=== PATIENT | female | born 1935 | race Caucasian/White ===

== ENCOUNTER 2017-04-18 12:37 | Observation (INO) | payer MEDICARE, BC ==
[2017-04-18] MEDS ORDERED: Sodium Chloride 0.9% 10 ML Syringe FLUSH PRN ×2 (12:44→15:05)
[2017-04-18 13:26] LABS: CHLORIDE,CL 103 mmol/L (101-111); SODIUM,NA 140 mmol/L (135-145)
[2017-04-18] MEDS ORDERED: Acetaminophen 325 MG Tab PO PRN (15:05)
[2017-04-18] MEDS ORDERED: Zolpidem 5 MG Tab PO PRN (15:05)
--- NOTE | 2017-04-18 15:20 | PCM.HP ---
H&P History of Present Illness - General Date of Service: 04/18/17 Admit Problem/Dx: Admission Diagnosis/Problem Admission Diagnosis/Problem TIA, Transient ischemic attack Source of Information: Patient, Family () - History of Present Illness Initial Comments - Free Text/Narative: The patient is an 81-year-old lady who has no history of coronary artery disease , no history of stroke. The patient has been on aspirin for primary prophylaxis. She was noted to have an acute onset of right facial droop along with the slurring of speech. Symptoms started around noon and lasted about an hour. They resolved on their own. No associated seizure, no loss of consciousness, no headache. She feels good and back to normal now She had no similar symptoms in the past. - Related Data Allergies/Adverse Reactions: Allergies Allergy/AdvReac Type Severity Reaction Status Date / Time No Known Allergies Allergy Verified 04/18/17 14:37 Home Medications: Home Meds Alendronate Sodium [Alendronate] 70 mg PO .WEEK 04/18/17 [History] Aspirin [Low Dose Aspirin EC] 81 mg PO DAILY 04/18/17 [History] Calcium Carbonate/Vitamin D3 [Caltrate 600+D] 1 tab PO BEDTIME 04/18/17 [History ] Fish Oil/[place]-3 Fatty Acids [Fish Oil 1,000 MG] 1 gm PO BID 04/18/17 [History] Levothyroxine 75 mcg PO ACBREAKFAST 04/18/17 [History] Multivitamin [Multi-Vitamin Daily] 1 each PO BEDTIME 04/18/17 [History] Simvastatin [Zocor] 20 mg PO BEDTIME 04/18/17 [History] Vit A/C/E AC/Znox/Cupric Oxide [Eye Vitamin-Minerals Tablet] 1 each PO BID 04/18 [History] azaTHIOprine [Azathioprine] 50 mg PO BID 04/18/17 [History] Past Medical History HEENT History: Reports: Impaired 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: - Past Surgical History GI Surgical History: Reports: Appendectomy, Cholecystectomy Musculoskeletal Surgical History: Reports: Hip Replacement, Other (See Below) Other Musculoskeletal Surgeries/Procedures:: patellar surgery Social & Family History - Tobacco Use Smoking Status *Q: Never Smoker - Caffeine Use Caffeine Use: Reports: Coffee - Recreational Drug Use Recreational Drug Use: No H&P Review of Systems - Review of Systems: Review Of Systems: See Below General: Denies: Fever Pulmonary: Denies: Shortness of Breath Cardiovascular: Denies: Chest Pain Gastrointestinal: Denies: Abdominal Pain Psychiatric: Denies: Confusion Neurological: Reports: Change in Speech, Other (Right facial droop). Denies: Seizure, Difficulty Walking, Weakness Exam - Exam Exam: See Below - Vital Signs Vital Signs: Last Vital Signs Temp 36.6 C 04/18/17 14:36 Pulse 71 04/18/17 14:36 Resp 18 04/18/17 14:36 BP 116/84 04/18/17 14:36 Pulse Ox 96 04/18/17 14:36 Weight: 67.041 kg - Exam General: Alert, Oriented Neck: Supple Lungs: Clear to Auscultation, Normal Respiratory Effort Cardiovascular: Regular Rate, Regular Rhythm Extremities: No Pedal Edema Neuro Extensive - Mental Status: Alert, Oriented x3, Normal Cognition, Memory Intact Neuro Extensive - Motor, Sensory, Reflexes: CN II-XII Intact. 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 *Q Meaningful Use (ADM) - VTE *Q VTE Criteria *Q: - Stroke *Q Stroke Criteria *Q: - AMI *Q AMI Criteria *Q: - Problem List (1) Dyslipidemia SNOMED Code(s): 976025281 ICD Code: E78.5 - HYPERLIPIDEMIA, UNSPECIFIED Status: Acute Current Visit : Yes (2) TIA (transient ischemic attack) SNOMED Code(s): 799918514 ICD Code: G45.9 - TRANSIENT CEREBRAL ISCHEMIC ATTACK, UNSPECIFIED Status: Acute Current Visit: Yes Problem List Initiated/Reviewed/Updated: Yes Orders Last 24hrs: Active Orders 24 hr Category Date Time Status Patient Status [ADT] Routine ADT 04/18/17 15:05 Ordered Antiembolic Devices [RC] PER UNIT ROUTINE Care 04/18/17 15:09 Ordered Neuro Check [RC] Q2HWA Care 04/18/17 15:00 Ordered Oxygen Therapy [RC] PRN Care 04/18/17 15:05 Ordered Up With Assistance [RC] ASDIRECTED Care 04/18/17 15:05 Ordered VTE/DVT Education [RC] PER UNIT ROUTINE Care 04/18/17 15:05 Ordered Vital Signs [RC] Q4H Care 04/18/17 15:05 Ordered Regular Diet [DIET] Diet 04/18/17 Dinner Ordered Acetaminophen [Tylenol] Med 04/18/17 15:05 Ordered 650 mg PO Q4H PRN Clopidogrel [Plavix] Med 04/18/17 15:00 Ordered 75 mg PO DAILY Heparin Sodium Med 04/18/17 22:00 Ordered 5,000 units SUBCUT Q8HR Levothyroxine Med 04/19/17 06:00 Ordered 75 mcg PO ACBREAKFAST Multivitamin [Multi-Vitamin Daily] Med 04/18/17 21:00 Ordered 1 each PO BEDTIME Simvastatin [Zocor] Med 04/18/17 21:00 Ordered 20 mg PO BEDTIME Sodium Chloride 0.9% [Saline Flush] Med 04/18/17 15:05 Ordered 10 ml FLUSH ASDIRECTED PRN Vit A/C/E AC/Znox/Cupric Oxide [Eye Vitamin-Minerals Med 04/18/17 21:00 Ordered Tablet] 1 each PO BID Zolpidem [Ambien] Med 04/18/17 15:05 Ordered 5 mg PO BEDTIME PRN azaTHIOprine [Imuran] Med 04/18/17 21:00 Ordered 50 mg PO BID Antiembolic Hose [OM.PC] Per Unit Routine Oth 04/18/17 15:06 Ordered Saline Lock Insert [OM.PC] Routine Oth 04/18/17 15:05 Ordered Resuscitation Status Routine Resus Stat 04/18/17 15:05 Ordered Medication Orders Acetaminophen (Tylenol) 650 mg PO Q4H PRN PRN Reason: Pain (Mild 1-3)/fever Azathioprine (Imuran) 50 mg PO BID [facility] Clopidogrel Bisulfate (Plavix) 75 mg PO DAILY [facility] Heparin Sodium (Porcine) (Heparin Sodium) 5,000 units SUBCUT Q8HR [facility] Levothyroxine Sodium (Levothyroxine) 75 mcg PO ACBREAKFAST [facility] Non-Formulary Medication (Multivitamin [Multi-Vitamin Daily]) 1 each PO BEDTIME [facility] Non-Formulary Medication (Simvastatin [Zocor]) 20 mg PO BEDTIME [facility] Non-Formulary Medication (Vit A/C/E Ac/Znox/Cupric Oxide [Eye Vitamin-Minerals Tablet]) 1 each PO BID [facility] Sodium Chloride (Saline Flush) 10 ml FLUSH ASDIRECTED PRN PRN Reason: Keep Vein Open Last Admin: 04/18/17 13:05 Dose: 10 ml Sodium Chloride (Saline Flush) 10 ml FLUSH ASDIRECTED PRN PRN Reason: Keep Vein Open Zolpidem Tartrate (Ambien) 5 mg PO BEDTIME PRN PRN Reason: Sleep Assessment/Plan Comment:: 81-year-old presented with transient right facial droop, slurred speech. 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 Discussed the case with neurology Dr. Maldonado from [place] No indication to use steroids. We'll need follow-up with neurosurgery No apparent seizure TIA With transient slurred speech, right facial droop Completely resolved We will do neuro checks during hospital observation Will switch aspirin to Plavix. The patient will need further risk stratification with cholesterol check. For now continue statin. The need further imaging study early next week. Carotid ultrasound, MRI head. Refer to primary care physician on discharge History of myositis Continue imuran DVT prophylaxis with subcutaneous heparin
[2017-04-18] MEDS: Clopidogrel 75 MG Tab PO SCH (16:27)
--- NOTE | 2017-04-18 18:08 | EDM.PDOC ---
"Scribed by Romi Asher 04/18/17 1257 Mynor Mosher MD ED HPI GENERAL MEDICAL PROBLEM - General Chief Complaint: Neurological Problem Stated Complaint: BY AMBULANCE Time Seen by Provider: 04/18/17 12:44 Source of Information: Reports: Patient, EMS, EMS Notes Reviewed, RN, RN Notes Reviewed History Limitations: Reports: No Limitations - History of Present Illness INITIAL COMMENTS - FREE TEXT/NARRATIVE: Arrives from home by ambulance with report of sudden onset of slurred and garbled speech and left facial droop approximately 45 minutes prior to arrival. Symptoms had completely resolved by the time the patient arrived to the emergency department. Patient had been on the telephone with a friend with an approximately one hour conversation. Patient's was present during the entire hour on the telephone and states that she had clear and normal speech. When the patient ended asked her what the other libertarian had said during the conversation and her response was with garbled and slurred speech. turned to face her and asked what was wrong with her speech and noted that she had significant left facial droop. The patient states she was not aware that her speech was abnormal. Both the patient and state that during the that the patient was symptomatic with speech and facial droop she displayed normal ambulation and use of both arms. Patient denies any headache preceding, during or after the neurologic symptoms. Denies any swallowing difficulties, visual changes, dizziness, lightheadedness, chest pain, breathing difficulty, numbness,tingling, motor weakness, loss of bowel or bladder control. Onset: Today Duration: Resolved Prior to Arrival Location: Reports: Head Severity: Mild - Related Data Allergies Allergy/AdvReac Type Severity Reaction Status Date / Time No Known Allergies Allergy Verified 04/18/17 14:37 Home Meds: Home Meds Alendronate Sodium [Alendronate] 70 mg PO .WEEK 04/18/17 [History] Aspirin [Low Dose Aspirin EC] 81 mg PO DAILY 04/18/17 [History] Calcium Carbonate/Vitamin D3 [Caltrate 600+D] 1 tab PO BEDTIME 04/18/17 [History ] Fish Oil/[place]-3 Fatty Acids [Fish Oil 1,000 MG] 1 gm PO BID 04/18/17 [History] Levothyroxine 75 mcg PO ACBREAKFAST 04/18/17 [History] Multivitamin [Multi-Vitamin Daily] 1 each PO BEDTIME 04/18/17 [History] Simvastatin [Zocor] 20 mg PO BEDTIME 04/18/17 [History] Vit A/C/E AC/Znox/Cupric Oxide [Eye Vitamin-Minerals Tablet] 1 each PO BID 04/18 [History] azaTHIOprine [Azathioprine] 50 mg PO BID 04/18/17 [History] Social & Family History - Family History Neurological: Reports: Other (See Below) (brother had a stroke.) ED ROS GENERAL - Review of Systems Review Of Systems: ROS reveals no pertinent complaints other than HPI. ED EXAM, NEURO - Physical Exam Exam: See Below Exam Limited By: No Limitations General Appearance: Alert, WD/WN, No Apparent Distress Eye Exam: Bilateral Eye: EOMI, Normal Inspection, PERRL Ears: Normal External Exam, Normal Canal, Hearing Grossly Normal, Normal TMs Nose: Normal Inspection, Normal Mucosa, No Blood Throat/Mouth: Normal Inspection, Normal Lips, Normal Teeth, Normal Gums, Normal Oropharynx, Normal Voice, No Airway Compromise Head Exam: Atraumatic, Normocephalic Neck: Normal Inspection, Supple, Non-Tender, Full Range of Motion. No: Carotid Bruit Respiratory/Chest: No Respiratory Distress, Lungs Clear, Normal Breath Sounds, No Accessory Muscle Use, Chest Non-Tender Cardiovascular: Normal Peripheral Pulses, Regular Rate, Rhythm, No Edema, No Gallop, No JVD, No Murmur, No Rub GI/Abdominal: Normal Bowel Sounds, Soft, Non-Tender, No Distention, No Abnormal Bruit (Female) Exam: Deferred Rectal (Female) Exam: Deferred Neurological: Alert, Normal Mood/Affect, Normal Dorsiflexion, CN II-XII Intact, Normal Plantar Flexion, Normal Reflexes, No Motor/Sensory Deficits, Oriented x 3 , Other (See airfield engineer officer for NIH stroke scale. ) Back Exam: Normal Inspection, Full Range of Motion, NT Extremities: Normal Inspection, Normal Range of Motion, Non-Tender, No Pedal Edema, Normal Capillary Refill Psychiatric: Normal Affect, Normal Mood Skin Exam: Warm, Dry, Intact, Normal Color, No Rash EKG INTERPRETATION EKG Date: 04/18/17 Time: 12:46 Rhythm: Other (sinus rhythm) Rate (Beats/Min): 73 [place]: Normal P-Wave: Present QRS: Other (Probable left atrial abnormality. Probable left ventricular hypertrophy.) ST-T: Normal QT: Normal Course - Vital Signs Last Recorded V/S: Last Vital Signs Temp 36.6 C 04/18/17 14:36 Pulse 71 04/18/17 14:36 Resp 18 04/18/17 14:36 BP 116/84 04/18/17 14:36 Pulse Ox 96 04/18/17 14:36 - Orders/Labs/Meds Orders: Active Orders 24 hr Category Date Time Status Sodium Chloride 0.9% [Saline Flush] Med 04/18/17 12:44 Active 10 ml FLUSH ASDIRECTED PRN Peripheral IV Insertion Adult [OM.PC] Stat Oth 04/18/17 12:45 Ordered Medication Orders Acetaminophen (Tylenol) 650 mg PO Q4H PRN PRN Reason: Pain (Mild 1-3)/fever Azathioprine (Imuran) 50 mg PO BID [facility] Clopidogrel Bisulfate (Plavix) 75 mg PO DAILY [facility] Last Admin: 04/18/17 16:27 Dose: 75 mg Heparin Sodium (Porcine) (Heparin Sodium) 5,000 units SUBCUT Q8HR [facility] Levothyroxine Sodium (Levothyroxine) 75 mcg PO ACBREAKFAST [facility] Multivitamins ([place]) 1 each PO BEDTIME [facility] Multivitamins/Minerals (I-[place]) 1 each PO BID [facility] Simvastatin (Zocor) 20 mg PO BEDTIME [facility] Sodium Chloride (Saline Flush) 10 ml FLUSH ASDIRECTED PRN PRN Reason: Keep Vein Open Last Admin: 04/18/17 13:05 Dose: 10 ml Sodium Chloride (Saline Flush) 10 ml FLUSH ASDIRECTED PRN PRN Reason: Keep Vein Open Zolpidem Tartrate (Ambien) 5 mg PO BEDTIME PRN PRN Reason: Sleep Labs: Laboratory Tests 04/18/17 04/18/17 04/18/17 Range/Units 12:56 12:58 12:58 WBC 5.5 (5.0-10.0) 10^3/uL RBC 4.08 L (4.2-5.4) 10^6/uL Hgb 13.2 (12.0-16.0) g/dL Hct 40.5 (37.0-47.0) % MCV 99.3 (80-100) fL MCH 32.4 (27.0-34.0) pg MCHC 32.6 L (33.0-35.0) g/dL Plt Count 201 (150-450) 10^3/uL Neut % (Auto) 44.3 (42.2-75.2) % Lymph % (Auto) 33.7 (20.5-50.1) % [place] % (Auto) 18.3 H (2-8) % Eos % (Auto) 3.3 H (1.0-3.0) % Baso % (Auto) 0.4 (0.0-1.0) % PT 10.2 (9.0-12.0) SEC INR 1.0 (0.9-1.2) APTT 26.0 (22.0-34.0) SEC Sodium (135-145) mmol/L Potassium (3.6-5.0) mmol/L Chloride (101-111) mmol/L Carbon Dioxide (21.0-31.0) mmol/L Anion Gap BUN (7-18) mg/dL Creatinine (0.6-1.3) mg/dL Est Cr Clr Drug Dosing mL/min Estimated GFR (MDRD) BUN/Creatinine Ratio Glucose (74-105) mg/dL POC Glucose 102 (83-110) mg/dl Calcium (8.4-10.2) mg/dl Total Bilirubin (0.2-1.0) mg/dL AST (10-42) IU/L ALT (10-60) IU/L Alkaline Phosphatase (42-121) IU/L Troponin I (0.00-0.02) ng/ml Total Protein (6.7-8.2) g/dl Albumin (3.2-5.5) g/dl Globulin Albumin/Globulin Ratio Urine Color (YELLOW) Urine Appearance (CLEAR) Urine pH (5.0-9.0) Ur Specific [place] (1.005-1.030) Urine Protein (NEGATIVE) Urine Glucose (UA) (NEGATIVE) Urine Ketones (NEGATIVE) Urine Occult Blood (NEGATIVE) Urine Nitrite (NEGATIVE) Urine Bilirubin (NEGATIVE) Urine Urobilinogen (0.2-1.0) mg/dL Ur Leukocyte Esterase (NEGATIVE) Urine RBC /HPF Urine WBC (0-5/HPF) /HPF Ur Epithelial Cells /HPF Urine Bacteria (0-FEW/HPF) /HPF Urine Opiates Screen (NEGATIVE) Ur Oxycodone Screen (NEGATIVE) Urine Methadone Screen (NEGATIVE) Ur Barbiturates Screen (NEGATIVE) U Tricyclic Antidepress (NEGATIVE) Ur Phencyclidine Scrn (NEGATIVE) Ur Amphetamine Screen (NEGATIVE) U Methamphetamines Scrn (NEGATIVE) Urine MDMA Screen (NEGATIVE) U Benzodiazepines Scrn (NEGATIVE) Urine Cocaine Screen (NEGATIVE) U Marijuana (THC) Screen (NEGATIVE) Ethyl Alcohol mg/dL 04/18/17 04/18/17 04/18/17 Range/Units 12:58 13:15 13:15 WBC (5.0-10.0) 10^3/uL RBC (4.2-5.4) 10^6/uL Hgb (12.0-16.0) g/dL Hct (37.0-47.0) % MCV (80-100) fL MCH (27.0-34.0) pg MCHC (33.0-35.0) g/dL Plt Count (150-450) 10^3/uL Neut % (Auto) (42.2-75.2) % Lymph % (Auto) (20.5-50.1) % [place] % (Auto) (2-8) % Eos % (Auto) (1.0-3.0) % Baso % (Auto) (0.0-1.0) % PT (9.0-12.0) SEC INR (0.9-1.2) APTT (22.0-34.0) SEC Sodium 140 (135-145) mmol/L Potassium 4.2 (3.6-5.0) mmol/L Chloride 103 (101-111) mmol/L Carbon Dioxide 28.0 (21.0-31.0) mmol/L Anion Gap 13.2 BUN 18 (7-18) mg/dL Creatinine 0.8 (0.6-1.3) mg/dL Est Cr Clr Drug Dosing 40.29 mL/min Estimated GFR (MDRD) > 60 BUN/Creatinine Ratio 22.50 Glucose 99 (74-105) mg/dL POC Glucose (83-110) mg/dl Calcium 9.9 (8.4-10.2) mg/dl Total Bilirubin 0.6 (0.2-1.0) mg/dL AST 24 (10-42) IU/L ALT 15 (10-60) IU/L Alkaline Phosphatase 41 L (42-121) IU/L Troponin I < 0.02 (0.00-0.02) ng/ml Total Protein 7.7 (6.7-8.2) g/dl Albumin 4.1 (3.2-5.5) g/dl Globulin 3.6 Albumin/Globulin Ratio 1.14 Urine Color Yellow (YELLOW) Urine Appearance Clear (CLEAR) Urine pH 5.5 (5.0-9.0) Ur Specific [place] 1.015 (1.005-1.030) Urine Protein Negative (NEGATIVE) Urine Glucose (UA) Negative (NEGATIVE) Urine Ketones Negative (NEGATIVE) Urine Occult Blood Trace-lysed H (NEGATIVE) Urine Nitrite Negative (NEGATIVE) Urine Bilirubin Negative (NEGATIVE) Urine Urobilinogen 0.2 (0.2-1.0) mg/dL Ur Leukocyte Esterase Negative (NEGATIVE) Urine RBC 5-10 H /HPF Urine WBC 0-5 (0-5/HPF) /HPF Ur Epithelial Cells Rare /HPF Urine Bacteria Rare (0-FEW/HPF) /HPF Urine Opiates Screen Negative (NEGATIVE) Ur Oxycodone Screen Negative (NEGATIVE) Urine Methadone Screen Negative (NEGATIVE) Ur Barbiturates Screen Negative (NEGATIVE) U Tricyclic Antidepress Negative (NEGATIVE) Ur Phencyclidine Scrn Negative (NEGATIVE) Ur Amphetamine Screen Negative (NEGATIVE) U Methamphetamines Scrn Negative (NEGATIVE) Urine MDMA Screen Negative (NEGATIVE) U Benzodiazepines Scrn Negative (NEGATIVE) Urine Cocaine Screen Negative (NEGATIVE) U Marijuana (THC) Screen Negative (NEGATIVE) Ethyl Alcohol < 5 mg/dL Meds: Medications Generic Name Dose Route Start Last Admin Trade Name Freq PRN Reason Stop Dose Admin Acetaminophen 650 mg 04/18/17 15:05 Tylenol PO Q4H PRN Pain (Mild 1-3)/fever Azathioprine 50 mg 04/18/17 21:00 Imuran PO BID [facility] Clopidogrel Bisulfate 75 mg 04/18/17 15:00 04/18/17 16:27 Plavix PO 75 mg DAILY [facility] Administration Heparin Sodium (Porcine) 5,000 units 04/18/17 22:00 Heparin Sodium SUBCUT Q8HR [facility] Levothyroxine Sodium 75 mcg 04/19/17 06:00 Levothyroxine PO ACBREAKFAST [facility] Multivitamins 1 each 04/18/17 21:00 Thera PO BEDTIME [facility] Multivitamins/Minerals 1 each 04/18/17 21:00 I-Preston PO BID [facility] Simvastatin 20 mg 04/18/17 21:00 Zocor PO BEDTIME [facility] Sodium Chloride 10 ml 04/18/17 12:44 04/18/17 13:05 Saline Flush FLUSH 10 ml ASDIRECTED PRN Administration Keep Vein Open Sodium Chloride 10 ml 04/18/17 15:05 Saline Flush FLUSH ASDIRECTED PRN Keep Vein Open Zolpidem Tartrate 5 mg 04/18/17 15:05 Ambien PO BEDTIME PRN Sleep - Radiology Interpretation Free Text/Narrative:: EXAM: CT Head Without Intravenous Contrast EXAM DATE/TIME: 04/18/2017 12:41 PM CLINICAL HISTORY: 81 years old, female; Signs and symptoms; Weakness, facial TECHNIQUE: Axial computed tomography images of the head/brain without intravenous contrast. All CT scans at this facility use one or more dose reduction techniques, viz.: automated exposure control; ma/kV adjustment per patient size (including targeted exams where dose is matched to indication; i.e. head); or iterative reconstruction technique. COMPARISON: No relevant prior studies available. FINDINGS: Brain: There is a low-density hygroma over the left frontal convexity. The hygroma measures 5.0 cm in greatest transverse dimension by up to 8 mm in depth. There is a minimal amount of mass effect on the underlying brain. 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 No acute intracranial changes. There are mild atrophic changes. No hemorrhage. No shift across the midline. Ventricles: Unremarkable. No ventriculomegaly. Bones/joints: Unremarkable. No acute fracture. Soft tissues: Unremarkable. Sinuses: Unremarkable as visualized. No acute sinusitis. Mastoid air cells: Unremarkable as visualized. No mastoid effusion. IMPRESSION: 1. Small hygroma over the left frontal convexity with a mild amount of mass effect. LAKIA BALTAZAR | Final Radiology Report CONFIDENTIALITY STATEMENT This report is intended only for use by the referring physician, and only in accordance with law. If you received this in error, call [phone]. Page 2 of 2 2. No other acute intracranial changes. Thank you for allowing us to participate in the care of your patient. Dictated and Authenticated by: Carlos Bhatt MD 04/18/2017 12:55 PM Central Time ([place] & [place]) Departure - Departure Time of Disposition: 13:49 ((Admit to Dr. Costa)) Disposition: Refer to Observation Condition: Fair Clinical Impression: TIA (transient ischemic attack) Qualifiers: Transient cerebral ischemia type: other Qualified Code(s): G45.8 - Other transient cerebral ischemic attacks and related syndromes - Discharge Information - My Orders Last 24 Hours: My Active Orders 04/18/17 12:44 Sodium Chloride 0.9% [Saline Flush] 10 ml FLUSH ASDIRECTED PRN 04/18/17 12:45 Peripheral IV Insertion Adult [OM.PC] Stat - Assessment/Plan Last 24 Hours: My Active Orders 04/18/17 12:44 Sodium Chloride 0.9% [Saline Flush] 10 ml FLUSH ASDIRECTED PRN 04/18/17 12:45 Peripheral IV Insertion Adult [OM.PC] Stat I have read and agree with the documentation that has been completed regarding this visit. By signing this record, I attest that the documentation was completed in my physical presence and is an accurate record of the encounter."
[2017-04-18] MEDS: Lutein/Minerals/Vit A,C & E Tab PO SCH (20:18)
[2017-04-18] MEDS: AZATHIOPRINE 50 MG PO SCH (20:19)
[2017-04-18] MEDS ORDERED: Multivitamins,Therapeutic Tab PO SCH (21:00)
[2017-04-18] MEDS ORDERED: Simvastatin 10 MG Tab PO SCH (21:00)
[2017-04-18] MEDS: Heparin Sodium 5,000 Units/ML Vial SUBCUT SCH (22:06)
[2017-04-19] MEDS ORDERED: Levothyroxine 75 MCG Tab PO SCH (06:00)
[2017-04-19] MEDS: Heparin Sodium 5,000 Units/ML Vial SUBCUT SCH (06:06)
[2017-04-19] MEDS: AZATHIOPRINE 50 MG PO SCH (09:15)
[2017-04-19] MEDS: Lutein/Minerals/Vit A,C & E Tab PO SCH (09:15)
[2017-04-19] MEDS: Clopidogrel 75 MG Tab PO SCH (09:17)
--- NOTE | 2017-04-19 11:52 | PCM.DCSUM1 ---
Discharge Summary - Hospital Course Free Text/Narrative:: 81-year-old presented with transient right facial droop, slurred speech. 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 Discussed the case with neurology Dr. Maldonado from [place] No indication to use steroids. We'll need follow-up with neurosurgery No apparent seizure TIA With transient slurred speech, right facial droop Completely resolved Will switch aspirin to Plavix. continue statin. no afib on tele Will need further imaging study early next week. Carotid ultrasound, MRI head. Pt will set up appt with Dr. Villa early next week. History of myositis Continue imuran - Discharge Data Discharge Date: 04/19/17 Discharge Disposition: Home, Self-Care 01 Condition: Good - Discharge Diagnosis/Problem(s) (1) Dyslipidemia SNOMED Code(s): 183003441 ICD Code: E78.5 - HYPERLIPIDEMIA, UNSPECIFIED Status: Acute Current Visit : Yes (2) TIA (transient ischemic attack) SNOMED Code(s): 933754214 ICD Code: G45.9 - TRANSIENT CEREBRAL ISCHEMIC ATTACK, UNSPECIFIED Status: Acute Current Visit: Yes Qualifiers: Transient cerebral ischemia type: other Qualified Code(s): G45.8 - Other transient cerebral ischemic attacks and related syndromes - Patient Instructions Diet: Heart Healthy Diet Activity: As Tolerated - Discharge Plan Prescriptions/Med Rec: Clopidogrel [Plavix] 75 mg PO DAILY #30 tablet Home Medications: Home Meds Alendronate Sodium [Alendronate] 70 mg PO .WEEK 04/18/17 [History] Calcium Carbonate/Vitamin D3 [Caltrate 600+D 1500 MG-400 Units] 1 tab PO BEDTIME 04/18/17 [History] Fish Oil/[place]-3 Fatty Acids [Fish Oil 1,000 MG] 1 gm PO BID 04/18/17 [History] Levothyroxine 75 mcg PO ACBREAKFAST 04/18/17 [History] Multivitamin [Multi-Vitamin Daily] 1 each PO BEDTIME 04/18/17 [History] Simvastatin [Zocor] 20 mg PO BEDTIME 04/18/17 [History] Vit A/C/E AC/Znox/Cupric Oxide [Eye Vitamin-Minerals Tablet] 1 each PO BID 04/18 [History] azaTHIOprine [Azathioprine] 50 mg PO BID 04/18/17 [History] Clopidogrel [Plavix] 75 mg PO DAILY #30 tablet 04/19/17 [Rx] Patient Handouts: Transient Ischemic Attack, [id number], Clopidogrel tablets , Dyslipidemia Referrals: PCP,Unobtain [Ordering Only Provider] - - General Info Date of Service: 04/19/17 Functional Status: Reports: Tolerating Diet - Review of Systems General: Denies: Fever, Weakness Pulmonary: Denies: Shortness of Breath Cardiovascular: Denies: Chest Pain Neurological: Reports: No Symptoms. Denies: Confusion, Difficulty Walking, Weakness, Change in Speech - Patient Data Vitals - Most Recent: Last Vital Signs Temp 37.1 C 04/19/17 07:00 Pulse 77 04/19/17 07:00 Resp 20 04/19/17 07:00 BP 122/68 04/19/17 07:00 Pulse Ox 94 L 04/19/17 07:00 Weight - Most Recent: 67.041 kg I&O - Last 24 hours: Intake & Output 04/18/17 04/19/17 04/19/17 21:59 06:59 14:59 Intake Total Balance Med Orders - Current: Current Medications Acetaminophen (Tylenol) 650 mg PO Q4H PRN PRN Reason: Pain (Mild 1-3)/fever Azathioprine (Imuran) 50 mg PO BID [facility] Last Admin: 04/19/17 09:15 Dose: 50 mg Clopidogrel Bisulfate (Plavix) 75 mg PO DAILY [facility] Last Admin: 04/19/17 09:17 Dose: 75 mg Heparin Sodium (Porcine) (Heparin Sodium) 5,000 units SUBCUT Q8HR [facility] Last Admin: 04/19/17 06:06 Dose: 5,000 units Levothyroxine Sodium (Levothyroxine) 75 mcg PO ACBREAKFAST [facility] Last Admin: 04/19/17 06:06 Dose: 75 mcg Multivitamins (Thera) 1 each PO BEDTIME [facility] Last Admin: 04/18/17 20:18 Dose: 1 each Multivitamins/Minerals (I-Preston) 1 each PO BID [facility] Last Admin: 04/19/17 09:15 Dose: 1 each Simvastatin (Zocor) 20 mg PO BEDTIME [facility] Last Admin: 04/18/17 20:18 Dose: 20 mg Sodium Chloride (Saline Flush) 10 ml FLUSH ASDIRECTED PRN PRN Reason: Keep Vein Open Last Admin: 04/18/17 13:05 Dose: 10 ml Sodium Chloride (Saline Flush) 10 ml FLUSH ASDIRECTED PRN PRN Reason: Keep Vein Open Zolpidem Tartrate (Ambien) 5 mg PO BEDTIME PRN PRN Reason: Sleep - Exam General: Reports: Alert, Oriented Neck: Reports: Supple Lungs: Reports: Clear to Auscultation, Normal Respiratory Effort Cardiovascular: Reports: Regular Rate, Regular Rhythm Extremities: No Pedal Edema Skin: Reports: Warm, Dry Neurological: Reports: No New Focal Deficit, Normal Speech, Cranial Nerves Intact *Q Meaningful Use (DIS) - VTE *Q VTE Criteria *Q: - Stroke *Q Stroke Criteria *Q: - AMI *Q AMI Criteria *Q:
--- NOTE | 2017-04-22 09:39 | EKG ---
04/18/2017- LAKIA BALTAZAR - EKG, per my reading, shows sinus rhythm at a rate of 73. [facility] /[id number]
== END 2017-04-19 13:25 | disposition home or self-care (01) ==
LOC: DL.ED 12:37 → DL.MS 14:15 → UNDOADMOB 14:15 → DL.MS 15:05
PROVIDERS: ADMIT Internal Medicine; ATTEND Internal Medicine
DX: E78.5 Hyperlipidemia, unspecified (principal); G45.8 Other transient cerebral ischemic attacks and related syndromes; Z79.899 Other long term (current) drug therapy; Z79.82 Long term (current) use of aspirin; Z90.49 Acquired absence of other specified parts of digestive tract
CPT/HCPCS: 36415; 70450; 71045; 80053; 80305; 81001; 82962; 84484; 85025; 85610; 85730; 93005; 93010; 96372; 99285; A9270; G0378; G0480; J1644; J7050; J7500

== ENCOUNTER 2017-04-27 06:01 | Emergency (ER) | payer MEDICARE, BC ==
--- NOTE | 2017-04-27 06:20 | EDM.PDOC ---
ED HPI GENERAL MEDICAL PROBLEM - General Chief Complaint: Neuro Symptoms/Deficits Stated Complaint: IN BY AMBULANCE Time Seen by Provider: 04/27/17 06:16 Source of Information: Reports: Patient, EMS, Family History Limitations: Reports: No Limitations - History of Present Illness INITIAL COMMENTS - FREE TEXT/NARRATIVE: spouse states last seen pt normal was 3am, then got up to b'room 5am noticed pt unsteady. called EMS. pt states was just here for same thing and wondered how often all this will be repeated. speech clear upon arrival but upon returning from CAT of head speech started to slur - Related Data Allergies Allergy/AdvReac Type Severity Reaction Status Date / Time No Known Allergies Allergy Verified 04/18/17 14:37 Home Meds: Home Meds Alendronate Sodium [Alendronate] 70 mg PO .WEEK 04/18/17 [History] Calcium Carbonate/Vitamin D3 [Caltrate 600+D 1500 MG-400 Units] 1 tab PO BEDTIME 04/18/17 [History] Fish Oil/[place]-3 Fatty Acids [Fish Oil 1,000 MG] 1 gm PO BID 04/18/17 [History] Levothyroxine 75 mcg PO ACBREAKFAST 04/18/17 [History] Multivitamin [Multi-Vitamin Daily] 1 each PO BEDTIME 04/18/17 [History] Simvastatin [Zocor] 20 mg PO BEDTIME 04/18/17 [History] Vit A/C/E AC/Znox/Cupric Oxide [Eye Vitamin-Minerals Tablet] 1 each PO BID 04/18 [History] azaTHIOprine [Azathioprine] 50 mg PO BID 04/18/17 [History] Clopidogrel [Plavix] 75 mg PO DAILY #30 tablet 04/19/17 [Rx] Past Medical History HEENT History: Reports: Impaired Vision Cardiovascular History: Reports: Hypertension Respiratory History: Reports: Pulmonary Fibrosis 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: Neurological History: Reports: Other (See Below) Other Neuro History: current admission TIA Endocrine/Metabolic History: Reports: Hypothyroidism Dermatologic History: Reports: Other (See Below) Other Dermatologic History: had finger abcess/infection - Past Surgical History GI Surgical History: Reports: Appendectomy, Cholecystectomy Musculoskeletal Surgical History: Reports: Hip Replacement, Other (See Below) Other Musculoskeletal Surgeries/Procedures:: patellar surgery Social & Family History - Family History Family Medical History: Noncontributory Neurological: Reports: Other (See Below) (brother had a stroke.) - Tobacco Use Smoking Status *Q: Never Smoker Second Hand Smoke Exposure: No - Caffeine Use Caffeine Use: Reports: Coffee - Recreational Drug Use Recreational Drug Use: No ED ROS GENERAL - Review of Systems Review Of Systems: ROS reveals no pertinent complaints other than HPI. ED EXAM, NEURO - Physical Exam Exam: See Below Exam Limited By: No Limitations General Appearance: Alert, WD/WN, No Apparent Distress, Anxious Eye Exam: Bilateral Eye: PERRL (pupils ER @ 4mm) Ears: Hearing Grossly Normal Throat/Mouth: Normal Voice, No Airway Compromise Head Exam: Atraumatic Neck: Non-Tender, Full Range of Motion Respiratory/Chest: No Respiratory Distress, Lungs Clear, Normal Breath Sounds Cardiovascular: Regular Rate, Rhythm GI/Abdominal: Soft, Non-Tender Neurological: Alert, Normal Mood/Affect, Other (left dorsiflexion weaker) Psychiatric: Normal Affect, Normal Mood Skin Exam: Warm, Dry, Normal Color Course - Vital Signs Last Recorded V/S: Last Vital Signs Temp 36.3 C 04/27/17 06:05 Pulse 79 04/27/17 06:05 Resp 17 04/27/17 06:05 BP 128/67 04/27/17 06:05 Pulse Ox 98 04/27/17 06:05 - Orders/Labs/Meds Orders: Active Orders 24 hr Category Date Time Status EKG 12 Lead [EKG Documentation Completion] [RC] STAT Care 04/27/17 06:15 Active INR,PT,PROTHROMBIN TIME [COAG] Stat Lab 04/27/17 06:20 Received PTT,PARTIAL THROMBOPLSTIN TIME [COAG] Stat Lab 04/27/17 06:20 Received Labs: Laboratory Tests 04/27/17 04/27/17 04/27/17 Range/Units 06:20 06:20 06:20 WBC 5.7 (5.0-10.0) 10^3/uL RBC 4.19 L (4.2-5.4) 10^6/uL Hgb 13.5 (12.0-16.0) g/dL Hct 41.5 (37.0-47.0) % MCV 99.0 (80-100) fL MCH 32.2 (27.0-34.0) pg MCHC 32.5 L (33.0-35.0) g/dL Plt Count 205 (150-450) 10^3/uL Neut % (Auto) 56.6 (42.2-75.2) % Lymph % (Auto) 28.3 (20.5-50.1) % [place] % (Auto) 12.2 H (2-8) % Eos % (Auto) 2.6 (1.0-3.0) % Baso % (Auto) 0.3 (0.0-1.0) % Sodium 139 (135-145) mmol/L Potassium 3.8 (3.6-5.0) mmol/L Chloride 101 (101-111) mmol/L Carbon Dioxide 28.0 (21.0-31.0) mmol/L Anion Gap 13.8 BUN 13 (7-18) mg/dL Creatinine 0.7 (0.6-1.3) mg/dL Est Cr Clr Drug Dosing 46.04 mL/min Estimated GFR (MDRD) > 60 BUN/Creatinine Ratio 18.57 Glucose 120 H (74-105) mg/dL Calcium 9.6 (8.4-10.2) mg/dl Total Bilirubin 0.8 (0.2-1.0) mg/dL AST 24 (10-42) IU/L ALT 14 (10-60) IU/L Alkaline Phosphatase 40 L (42-121) IU/L Troponin I < 0.02 (0.00-0.02) ng/ml Total Protein 7.5 (6.7-8.2) g/dl Albumin 4.1 (3.2-5.5) g/dl Globulin 3.4 Albumin/Globulin Ratio 1.21 Meds: Medications Discontinued Medications Generic Name Dose Route Start Last Admin Trade Name Freq PRN Reason Stop Dose Admin Aspirin Confirm 04/27/17 06:46 04/27/17 06:52 Aspirin Administered 04/27/17 06:47 325 mg Dose Administration 325 mg .ROUTE .STK-MED ONE - Re-Assessments/Exams Free Text/Narrative Re-Assessment/Exam: 04/27/17 06:[address] Jesus @ who kindly accepted pt. Departure - Departure Time of Disposition: 06:58 Disposition: DC/Tfer to Acute Hospital 02 Condition: Fair Clinical Impression: Cerebral infarction Qualifiers: Cerebral infarction mechanism: other mechanism Qualified Code(s): I63.8 - Other cerebral infarction - Discharge Information Forms: Interfacility Transfer EMTALA - My Orders Last 24 Hours: My Active Orders 04/27/17 06:15 EKG 12 Lead [EKG Documentation Completion] [RC] STAT 04/27/17 06:20 INR,PT,PROTHROMBIN TIME [COAG] Stat PTT,PARTIAL THROMBOPLSTIN TIME [COAG] Stat - Assessment/Plan Last 24 Hours: My Active Orders 04/27/17 06:15 EKG 12 Lead [EKG Documentation Completion] [RC] STAT 04/27/17 06:20 INR,PT,PROTHROMBIN TIME [COAG] Stat PTT,PARTIAL THROMBOPLSTIN TIME [COAG] Stat
[2017-04-27] MEDS ORDERED: Aspirin 325 MG Tab ONE (06:46)
[2017-04-27 06:47] LABS: ANION GAP 13.8; CHLORIDE,CL 101 mmol/L (101-111); SODIUM,NA 139 mmol/L (135-145)
[2017-04-27] MEDS ORDERED: Aspirin 325 MG Tab PO ONE (06:50)
--- NOTE | 2017-04-29 06:23 | EKG ---
04/27/2017 - LAKIA BALTAZAR - PROCEDURE: Twelve-lead EKG. FINDINGS: This 12-lead EKG shows a normal sinus rhythm with a ventricular rate of 66. Normal axis and intervals. LVH criteria. No acute ST-segment or T-wave changes. Nonspecific ST changes in the lateral leads. [facility] /[id number]
== END 2017-04-27 07:33 ==
LOC: DL.ED 06:01
DX: I63.8 Other cerebral infarction (principal); I10 Essential (primary) hypertension; E03.9 Hypothyroidism, unspecified; Z79.899 Other long term (current) drug therapy
CPT/HCPCS: 36415; 70450; 80053; 81001; 84484; 85025; 85610; 85730; 93005; 93010; 99285; A9270

== ENCOUNTER 2017-05-08 13:40 | Inpatient (IN) | payer MEDICARE, BC ==
--- NOTE | 2017-05-12 12:14 | PCM.HP ---
H&P History of Present Illness - General Date of Service: 05/12/17 Admit Problem/Dx: weakness after cva Source of Information: Patient, Other ([facility] records) History Limitations: Reports: Physical Impairment - History of Present Illness Initial Comments - Free Text/Narative: This is a very pleasant 81-year-old w a PMH of hyperlipidemia,hypertension, hypothyroidism, 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 She was admitted to [facility] for sudden onset of left-sided weakness and right facial droop. She was found to have right MCA ischemic infarct. The hospital course was complicated with urinary retention, small bowel obstruction, Escherichia coli sepsis. The patient transferred to [facility] for continued physical and occupational therapy, IV antibiotics. - Related Data Allergies/Adverse Reactions: Allergies Allergy/AdvReac Type Severity Reaction Status Date / Time No Known Allergies Allergy Verified 05/12/17 10:01 Home Medications: Home Meds Alendronate Sodium [Alendronate] 70 mg PO .WEEK 04/18/17 [History] Calcium Carbonate/Vitamin D3 [Caltrate 600+D 1500 MG-400 Units] 1 tab PO BEDTIME 04/18/17 [History] Fish Oil/[place]-3 Fatty Acids [Fish Oil 1,000 MG] 1 gm PO BID 04/18/17 [History] Levothyroxine 75 mcg PO ACBREAKFAST 04/18/17 [History] azaTHIOprine [Azathioprine] 50 mg PO BID 04/18/17 [History] Clopidogrel [Plavix] 75 mg PO DAILY #30 tablet 04/19/17 [Rx] Aspirin [Halfprin] 81 mg PO DAILY 05/12/17 [History] Multivit-Min/FA/Lycopene/Lut [Centrum Silver Tablet] 1 tab PO DAILY 05/12/17 [ History] atorvaSTATin [Lipitor] 80 mg PO BEDTIME 05/12/17 [History] Past Medical History HEENT History: Reports: Impaired Vision Cardiovascular History: Reports: Hypertension Respiratory History: Reports: Pulmonary Fibrosis 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: Neurological History: Reports: Other (See Below) Other Neuro History: current admission TIA Endocrine/Metabolic History: Reports: Hypothyroidism Dermatologic History: Reports: Other (See Below) Other Dermatologic History: had finger abcess/infection - Past Surgical History GI Surgical History: Reports: Appendectomy, Cholecystectomy Musculoskeletal Surgical History: Reports: Hip Replacement, Other (See Below) Other Musculoskeletal Surgeries/Procedures:: patellar surgery Social & Family History - Family History Family Medical History: Noncontributory Neurological: Reports: Other (See Below) (brother had a stroke.) - Tobacco Use Smoking Status *Q: Never Smoker Second Hand Smoke Exposure: No - Caffeine Use Caffeine Use: Reports: Coffee - Recreational Drug Use Recreational Drug Use: No H&P Review of Systems - Review of Systems: Review Of Systems: See Below General: Denies: Fever Pulmonary: Denies: Shortness of Breath Cardiovascular: Denies: Chest Pain Gastrointestinal: Reports: Diarrhea (Last night). Denies: Abdominal Pain Genitourinary: Denies: Dysuria Psychiatric: Denies: Confusion Exam - Exam Exam: See Below - Vital Signs Vital Signs: Last Vital Signs Temp 36.8 C 05/12/17 10:50 Pulse 70 05/12/17 10:50 Resp 20 05/12/17 10:50 BP 149/69 H 05/12/17 10:50 Pulse Ox 97 05/12/17 10:50 Weight: 62.097 kg - Exam General: Alert, Oriented Neck: Supple Lungs: Clear to Auscultation, Normal Respiratory Effort Cardiovascular: Regular Rate, Regular Rhythm GI/Abdominal Exam: Normal Bowel Sounds, Soft, Non-Tender, No Distention Extremities: Non-Tender, No Pedal Edema Skin: Warm, Dry Neuro Extensive - Mental Status: Alert, Oriented x3 Neuro Extensive - Motor, Sensory, Reflexes: Hemeplagia (L), Other (Left neglect) Psychiatric: Alert, Normal Affect, Normal Mood Problem List Initiated/Reviewed/Updated: Yes Orders Last 24hrs: Active Orders 24 hr Category Date Time Status Aspirin [Halfprin] Med 05/13/17 09:00 Ordered 81 mg PO DAILY Calcium Carbonate/Vitamin D3 [Caltrate 600+D 1500 MG- Med 05/12/17 21:00 Ordered 400 Units] 1 tab PO BEDTIME Clopidogrel [Plavix] Med 05/13/17 09:00 Ordered 75 mg PO DAILY Fish Oil/[place]-3 Fatty Acids [Fish Oil 1,000 MG] Med 05/12/17 21:00 Ordered 1 gm PO BID Levothyroxine Med 05/13/17 06:00 Ordered 75 mcg PO ACBREAKFAST Multivit-Min/FA/Lycopene/Lut [Centrum Silver Tablet] Med 05/13/17 09:00 Ordered 1 tab PO DAILY atorvaSTATin [Lipitor] Med 05/12/17 21:00 Ordered 80 mg PO BEDTIME azaTHIOprine [Imuran] Med 05/12/17 21:00 Ordered 50 mg PO BID cefTRIAXone [Rocephin] 2,000 mg Med 05/12/17 12:15 Ordered Sodium Chloride 0.9% [Normal Saline] 50 ml IV Q24H Medication Orders Aspirin (Halfprin) 81 mg PO DAILY [facility] Azathioprine (Imuran) 50 mg PO BID [facility] Clopidogrel Bisulfate (Plavix) 75 mg PO DAILY [facility] Ceftriaxone Sodium 2,000 mg/ (Sodium Chloride) 50 mls @ 100 mls/hr IV Q24H [facility] Levothyroxine Sodium (Levothyroxine) 75 mcg PO ACBREAKFAST [facility] Non-Formulary Medication (Atorvastatin [Lipitor]) 80 mg PO BEDTIME [facility] Non-Formulary Medication (Calcium Carbonate/Vitamin D3 [Caltrate 600+D 1500 Mg- 400 Units]) 1 tab PO BEDTIME [facility] Non-Formulary Medication (Fish Oil/[place]mo-3 Fatty Acids [Fish Oil 1,000 Mg]) 1 gm PO BID [facility] Non-Formulary Medication (Multivit-Min/Fa/Lycopene/Lut [Centrum Silver Tablet]) 1 tab PO DAILY [facility] Assessment/Plan Comment:: This is a very pleasant 81-year-old w a PMH of hyperlipidemia,hypertension, hypothyroidism, 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 She was admitted for sudden onset of left-sided weakness and right facial droop. The patient recently, a week ago, had similar symptoms. 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 At that time, they spoke with Dr. Jesus from Neurology and a Vascular appointment was obtained. 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 She had a CT of the head which shows evolving subacute infarct. 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 Pt admitted to medicine #The patient is an 81-year-old lady who presented with an acute ischemic stroke with left-sided hemiparesis. -The patient was noted to have significant carotid disease. She was not a candidate for interventions. -The patient is treated with aspirin, plavix, lipitor now. -Continue Physical Therapy, Occupational Therapy, and Speech and Language Pathology treatments. -video swallow study suggested soft Diet -will coni Jesus #E.Coli sepsis -aspiration vs translocation from SBO -continue Ceftriaxone for 2 weeks -coni Brownlee Acute urinary rentention -Maintain catheter for now #Acute diarrhea -Leukocytosis -Check for cdiff---> neg We'll monitor for now #Acute small bowel obstruction. -had a few days of SBO but resolved #Hypernatremia along with hypokalemia. Improved Monitor periodically DVT prophylaxis with subcutaneous heparin
[2017-05-12] MEDS: cefTRIAXone 2 GM Vial IVPUSH SCH (15:03)
[2017-05-12] MEDS ORDERED: Non-Formulary Medication 1 Each (Fish Oil/Omega-3 Fatty Acids [Fish Oil 1,000 Mg] 1 GM) PO SCH (21:00)
[2017-05-12] MEDS: Calcium Carbonate/Vitamin D3 1250 MG-200 Unit Tab PO SCH (21:38)
[2017-05-12] MEDS: atorvaSTATin 20 MG Tab PO SCH (21:43)
[2017-05-12] MEDS: Zolpidem 5 MG Tab PO PRN (21:43)
[2017-05-13] MEDS: Acetaminophen 325 MG Tab PO PRN (01:07)
[2017-05-13] MEDS: Levothyroxine 75 MCG Tab PO SCH (05:02)
[2017-05-13] MEDS: Aspirin 81 MG Tab.EC PO SCH (08:49)
[2017-05-13] MEDS: Multivitamins, Therapeutic with Minerals Tab PO SCH (08:49)
[2017-05-13] MEDS: Enoxaparin 40 MG/0.4 ML Syringe SUBCUT SCH (08:49)
[2017-05-13] MEDS: Clopidogrel 75 MG Tab PO SCH (08:49)
[2017-05-13] MEDS: cefTRIAXone 2 GM Vial IVPUSH SCH (13:57)
--- NOTE | 2017-05-13 14:51 | CR ---
CLINICAL HISTORY: 81-year-old female with left hip pain. INTERPRETATION: Orthopedic "nail" proximal left femur that was present on previous exam of August 28. No new arthritic degenerative changes of the ipsilateral hip joint. No acute left hip fracture or dislocation. Generalized mild age-appropriate osteopenia and calcifications in soft tissues.
[2017-05-13] MEDS: Calcium Carbonate/Vitamin D3 1250 MG-200 Unit Tab PO SCH (21:04)
[2017-05-13] MEDS: atorvaSTATin 20 MG Tab PO SCH (21:04)
[2017-05-13] MEDS: Zolpidem 5 MG Tab PO PRN (21:12)
[2017-05-13] MEDS: Sodium Chloride 0.9% 10 ML Syringe FLUSH PRN (21:12)
[2017-05-14] MEDS: Levothyroxine 75 MCG Tab PO SCH (05:06)
[2017-05-14] MEDS: Enoxaparin 40 MG/0.4 ML Syringe SUBCUT SCH (09:49)
[2017-05-14] MEDS: Multivitamins, Therapeutic with Minerals Tab PO SCH (09:49)
[2017-05-14] MEDS: Aspirin 81 MG Tab.EC PO SCH (09:49)
[2017-05-14] MEDS: Clopidogrel 75 MG Tab PO SCH (09:49)
[2017-05-14] MEDS: cefTRIAXone 2 GM Vial IVPUSH SCH (12:54)
[2017-05-14] MEDS: Ondansetron 4 MG Tab.DIS PO PRN (18:35)
[2017-05-14] MEDS ORDERED: ALPRAZolam 0.5 MG Tab PO ONE (21:56)
[2017-05-14] MEDS: atorvaSTATin 20 MG Tab PO SCH (22:17)
[2017-05-14] MEDS: Calcium Carbonate/Vitamin D3 1250 MG-200 Unit Tab PO SCH (22:18)
[2017-05-14] MEDS: Sodium Chloride 0.9% 10 ML Syringe FLUSH PRN (22:18)
[2017-05-14] MEDS: Acetaminophen 325 MG Tab PO PRN (22:58)
[2017-05-15] MEDS: Levothyroxine 75 MCG Tab PO SCH (06:23)
[2017-05-15] MEDS: Aspirin 81 MG Tab.EC PO SCH (09:04)
[2017-05-15] MEDS: Clopidogrel 75 MG Tab PO SCH (09:04)
[2017-05-15] MEDS: Multivitamins, Therapeutic with Minerals Tab PO SCH (09:05)
[2017-05-15] MEDS: Acetaminophen 325 MG Tab PO PRN (09:05)
[2017-05-15] MEDS: Enoxaparin 40 MG/0.4 ML Syringe SUBCUT SCH (09:11)
[2017-05-15] MEDS: cefTRIAXone 2 GM Vial IVPUSH SCH (14:02)
[2017-05-15] MEDS: Sodium Chloride 0.9% 10 ML Syringe FLUSH PRN (14:02)
[2017-05-15] MEDS: ALPRAZolam 0.5 MG Tab PO SCH (20:39)
[2017-05-15] MEDS: Calcium Carbonate/Vitamin D3 1250 MG-200 Unit Tab PO SCH (20:39)
[2017-05-15] MEDS: atorvaSTATin 20 MG Tab PO SCH (20:39)
[2017-05-16] MEDS: Levothyroxine 75 MCG Tab PO SCH (06:30)
[2017-05-16] MEDS: Clopidogrel 75 MG Tab PO SCH (08:46)
[2017-05-16] MEDS: Aspirin 81 MG Tab.EC PO SCH (08:46)
[2017-05-16] MEDS: Multivitamins, Therapeutic with Minerals Tab PO SCH (08:46)
[2017-05-16] MEDS: Acetaminophen 325 MG Tab PO PRN ×2 (08:47→22:28)
[2017-05-16] MEDS: Enoxaparin 40 MG/0.4 ML Syringe SUBCUT SCH (08:49)
[2017-05-16] MEDS: cefTRIAXone 2 GM Vial IVPUSH SCH (13:14)
[2017-05-16] MEDS: Sodium Chloride 0.9% 10 ML Syringe FLUSH PRN (13:14)
[2017-05-16] MEDS: Ondansetron 4 MG Tab.DIS PO PRN (16:25)
[2017-05-16] MEDS: Calcium Carbonate/Vitamin D3 1250 MG-200 Unit Tab PO SCH (21:39)
[2017-05-16] MEDS: atorvaSTATin 20 MG Tab PO SCH (21:39)
[2017-05-16] MEDS: Nystatin Topical Powder 30 GM Bottle TOP SCH (21:40)
[2017-05-16] MEDS: ALPRAZolam 0.5 MG Tab PO SCH (21:41)
[2017-05-17] MEDS: Levothyroxine 75 MCG Tab PO SCH (06:42)
[2017-05-17] MEDS: Acetaminophen 325 MG Tab PO PRN ×2 (09:11→21:58)
[2017-05-17] MEDS: Multivitamins, Therapeutic with Minerals Tab PO SCH (09:11)
[2017-05-17] MEDS: Clopidogrel 75 MG Tab PO SCH (09:11)
[2017-05-17] MEDS: Aspirin 81 MG Tab.EC PO SCH (09:11)
[2017-05-17] MEDS: Enoxaparin 40 MG/0.4 ML Syringe SUBCUT SCH (09:18)
[2017-05-17] MEDS: Nystatin Topical Powder 30 GM Bottle TOP SCH ×2 (09:21→22:00)
[2017-05-17] MEDS: cefTRIAXone 2 GM Vial IVPUSH SCH (13:05)
[2017-05-17] MEDS: Sodium Chloride 0.9% 10 ML Syringe FLUSH PRN (13:05)
[2017-05-17] MEDS: Ondansetron 4 MG Tab.DIS PO PRN (17:52)
[2017-05-17] MEDS: Calcium Carbonate/Vitamin D3 1250 MG-200 Unit Tab PO SCH (22:00)
[2017-05-17] MEDS: atorvaSTATin 20 MG Tab PO SCH (22:01)
[2017-05-17] MEDS: ALPRAZolam 0.5 MG Tab PO SCH (22:01)
[2017-05-18] MEDS: Acetaminophen 325 MG Tab PO PRN ×3 (04:40→19:43)
[2017-05-18] MEDS: Levothyroxine 75 MCG Tab PO SCH (05:15)
[2017-05-18] MEDS ORDERED: Acetaminophen/oxyCODONE 325-5 MG Tab PO ONE (06:20)
[2017-05-18 06:48] LABS: ANION GAP 13.6; CHLORIDE,CL 101 mmol/L (101-111); SODIUM,NA 139 mmol/L (135-145)
--- NOTE | 2017-05-18 09:36 | PCM.PN ---
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 She was admitted to [facility] for sudden onset of left-sided weakness and right facial droop. She was found to have right MCA ischemic infarct. The hospital course was complicated with urinary retention, small bowel obstruction, Escherichia coli sepsis. The patient transferred to [facility] bed for continued physical and occupational therapy, IV antibiotic. Seen sleeping this morning. In no distress. Reports lower abdominal pain. Wants something for the pain. Functional Status: Reports: Pain Controlled - Review of Systems General: Reports: No Symptoms HEENT: Reports: No Symptoms Pulmonary: Reports: No Symptoms Cardiovascular: Reports: No Symptoms Gastrointestinal: Reports: Abdominal Pain Genitourinary: Reports: No Symptoms Musculoskeletal: Reports: No Symptoms Skin: Reports: No Symptoms Neurological: Reports: Difficulty Walking, Weakness Psychiatric: Reports: No Symptoms - Patient Data Vitals - Most Recent: Last Vital Signs Temp 98.2 F 05/18/17 07:48 Pulse 83 05/18/17 07:48 Resp 20 05/18/17 07:48 BP 110/74 05/18/17 07:48 Pulse Ox 93 L 05/18/17 07:48 Weight - Most Recent: 136 lb 14.4 oz I&O - Last 24 Hours: Intake & Output 05/17/17 05/18/17 05/18/17 22:59 06:59 14:59 Intake Total 200 20 Output Total 250 Balance 200 -230 Lab Results Last 24 Hours: Laboratory Results - last 24 hr 05/18/17 05/18/17 05/18/17 Range/Units 06:00 06:00 06:00 WBC 6.5 (5.0-10.0) 10^3/uL RBC 3.76 L (4.2-5.4) 10^6/uL Hgb 12.1 (12.0-16.0) g/dL Hct 38.5 (37.0-47.0) % MCV 102.4 H (80-100) fL MCH 32.2 (27.0-34.0) pg MCHC 31.4 L (33.0-35.0) g/dL Plt Count 310 (150-450) 10^3/uL Neut % (Auto) 63.7 (42.2-75.2) % Lymph % (Auto) 24.2 (20.5-50.1) % [place] % (Auto) 9.0 H (2-8) % Eos % (Auto) 2.5 (1.0-3.0) % Baso % (Auto) 0.6 (0.0-1.0) % ESR 34 H (0-20) mm/hr Sodium 139 (135-145) mmol/L Potassium 3.6 (3.6-5.0) mmol/L Chloride 101 (101-111) mmol/L Carbon Dioxide 28.0 (21.0-31.0) mmol/L Anion Gap 13.6 BUN 12 (7-18) mg/dL Creatinine 0.5 L (0.6-1.3) mg/dL Est Cr Clr Drug Dosing 64.46 mL/min Estimated GFR (MDRD) > 60 Glucose 126 H (74-105) mg/dL Calcium 9.3 (8.4-10.2) mg/dl ALT 22 (10-60) IU/L C-Reactive Protein 0.9 (0.0-1.3) mg/dL Med Orders - Current: Current Medications Acetaminophen (Tylenol) 650 mg PO Q4H PRN PRN Reason: Pain (Mild 1-3)/fever Last Admin: 05/18/17 04:40 Dose: 650 mg Alprazolam (Xanax) 0.5 mg PO BEDTIME [facility] Last Admin: 05/17/17 22:01 Dose: 0.5 mg Aspirin (Halfprin) 81 mg PO DAILY [facility] Last Admin: 05/17/17 09:11 Dose: 81 mg Atorvastatin Calcium (Lipitor) 80 mg PO BEDTIME [facility] Last Admin: 05/17/17 22:01 Dose: 80 mg Azathioprine (Imuran) 50 mg PO BID [facility] Last Admin: 05/17/17 22:01 Dose: 50 mg Calcium Carbonate (Calcium Carbonate/Vitamin D 1250 Mg-200 Unit) 1 tab PO BEDTIME [facility] Last Admin: 05/17/17 22:00 Dose: 1 tab Ceftriaxone Sodium (Rocephin) 2 gm IVPUSH Q24H [facility] Last Admin: 05/17/17 13:05 Dose: 2 gm Clopidogrel Bisulfate (Plavix) 75 mg PO DAILY [facility] Last Admin: 05/17/17 09:11 Dose: 75 mg Enoxaparin Sodium (Lovenox) 40 mg SUBCUT DAILY [facility] Last Admin: 05/17/17 09:18 Dose: 40 mg Levothyroxine Sodium (Levothyroxine) 75 mcg PO ACBREAKFAST [facility] Last Admin: 05/18/17 05:15 Dose: 75 mcg Multivitamins/Minerals (Vitamins And Minerals) 1 tab PO DAILY [facility] Last Admin: 05/17/17 09:11 Dose: 1 tab Nystatin (Nystop) 0 gm TOP BID [facility] Last Admin: 05/17/17 22:00 Dose: 1 applic Ondansetron HCl (Zofran Odt) 4 mg PO Q6H PRN PRN Reason: Nausea Last Admin: 05/17/17 17:52 Dose: 4 mg Sodium Chloride (Saline Flush) 10 ml FLUSH ASDIRECTED PRN PRN Reason: Keep Vein Open Last Admin: 05/17/17 13:05 Dose: 10 ml Discontinued Medications Alprazolam (Xanax) 0.5 mg PO ONETIME ONE Stop: 05/14/17 21:57 Last Admin: 05/14/17 22:17 Dose: 0.5 mg Non-Formulary Medication (Fish Oil/[place]-3 Fatty Acids [Fish Oil 1,000 Mg]) 1 gm PO BID [facility] Oxycodone/Acetaminophen (Percocet 325-5 Mg) 1 tab PO ONETIME ONE Stop: 05/18/17 06:21 Last Admin: 05/18/17 06:35 Dose: 1 tab Zolpidem Tartrate (Ambien) 5 mg PO BEDTIME PRN PRN Reason: Sleep Last Admin: 05/13/17 21:12 Dose: 5 mg - Exam General: Alert, Oriented HEENT: Pupils Equal, Pupils Reactive, EOMI, Mucous Membr. Moist/[place] Neck: Supple Lungs: Clear to Auscultation, Normal Respiratory Effort Cardiovascular: Regular Rate, Regular Rhythm GI/Abdominal Exam: Normal Bowel Sounds, Soft, Non-Tender, No Organomegaly, No Distention, No Abnormal Bruit, No Mass, Pelvis Stable (Female) Exam: Normal External Exam, Normal Speculum Exam, Normal Bimanual Exam Back Exam: Normal Inspection, Full Range of Motion Extremities: Normal Inspection, Normal Range of Motion, Non-Tender, No Pedal Edema, Normal Capillary Refill Skin: Warm, Dry, Intact Wound/Incisions: Healing Well Neurological: No New Focal Deficit Psy/Mental Status: Alert, Normal Affect, Normal Mood - Problem List Review Problem List Initiated/Reviewed/Updated: Yes - Plan Plan:: This is a very pleasant 81-year-old w a PMH of hyperlipidemia,hypertension, hypothyroidism, 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 She was admitted at [facility] for sudden onset of left-sided weakness and right facial droop. 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 CT angiograms of the head and neck showed occlusion of the right internal carotid artery, 50% occlusion of the left internal carotid artery, some subclavian artery stenosis too, and a right MCA ischemic infarct. She was managed medically and discharged to swing bed for continue straightening. #Acute ischemic stroke with left-sided hemiparesis. -The patient was noted to have significant carotid disease. She was not a candidate for interventions. -Continue aspirin, plavix, lipitor -Continue Physical Therapy, Occupational Therapy, and Speech and Language Pathology treatments. -video swallow study suggested soft Diet -Follows with Dr Jesus #E.Coli sepsis -aspiration vs translocation from SBO -continue Ceftriaxone for 2 weeks -follws with Dr Brownlee Acute urinary retention -Maintain catheter for now #Acute diarrhea -Work up was negative -will start imodium prn #Acute small bowel obstruction. -Resolved #Hypernatremia along with hypokalemia. Improved Monitor periodically DVT prophylaxis with subcutaneous heparin
[2017-05-18] MEDS: Clopidogrel 75 MG Tab PO SCH (11:17)
[2017-05-18] MEDS: Multivitamins, Therapeutic with Minerals Tab PO SCH (11:18)
[2017-05-18] MEDS: Nystatin Topical Powder 30 GM Bottle TOP SCH ×2 (11:18→23:01)
[2017-05-18] MEDS: Aspirin 81 MG Tab.EC PO SCH (11:18)
[2017-05-18] MEDS: Enoxaparin 40 MG/0.4 ML Syringe SUBCUT SCH (11:18)
[2017-05-18] MEDS: cefTRIAXone 2 GM Vial IVPUSH SCH (14:15)
[2017-05-18] MEDS: Sodium Chloride 0.9% 10 ML Syringe FLUSH PRN ×3 (14:15→23:45)
[2017-05-18] MEDS: Ondansetron 4 MG Tab.DIS PO PRN (18:37)
[2017-05-18] MEDS: traMADol 50 MG Tab PO PRN (18:46)
[2017-05-18] MEDS: Loperamide 2 MG Cap PO PRN (19:44)
[2017-05-18] MEDS ORDERED: Iopamidol 612 MG/ML 75 ML Bottle IVPUSH ONE (20:16)
[2017-05-18] MEDS ORDERED: Morphine 2 MG/ML Syringe IVPUSH ONE (20:17)
[2017-05-18] MEDS: ALPRAZolam 0.5 MG Tab PO SCH (23:36)
[2017-05-18] MEDS: atorvaSTATin 20 MG Tab PO SCH (23:44)
[2017-05-18] MEDS: Calcium Carbonate/Vitamin D3 1250 MG-200 Unit Tab PO SCH (23:45)
[2017-05-19] MEDS: Levothyroxine 75 MCG Tab PO SCH (06:25)
[2017-05-19] MEDS: Enoxaparin 40 MG/0.4 ML Syringe SUBCUT SCH (09:37)
[2017-05-19] MEDS: Multivitamins, Therapeutic with Minerals Tab PO SCH (09:37)
[2017-05-19] MEDS: Clopidogrel 75 MG Tab PO SCH (09:37)
[2017-05-19] MEDS: Aspirin 81 MG Tab.EC PO SCH (09:37)
[2017-05-19] MEDS: Nystatin Topical Powder 30 GM Bottle TOP SCH ×2 (10:00→22:43)
--- NOTE | 2017-05-19 10:34 | CT ---
Addendum report: CT exam 18 May 2017 (2213 hours) reviewed. IMPRESSION: Multiple fluid-filled small bowel loops, mildly dilated, with differential air-fluid leve ls evident on crosstable lateral (sagittal) images suggesting possible mild or early....mechanical sm all bowel obstruction. Clinical? Adhesions? No free air or ascites. No abdominal mass lesion or mesenteric/retroperitoneal lymphadenopathy. Pancolonic diverticulosis. Ri ght adnexal cyst.
[2017-05-19] MEDS: Sodium Chloride 0.9% 10 ML Syringe FLUSH PRN ×2 (13:04→21:08)
[2017-05-19] MEDS: cefTRIAXone 2 GM Vial IVPUSH SCH (13:04)
[2017-05-19] MEDS: Acetaminophen 325 MG Tab PO PRN (15:57)
[2017-05-19] MEDS: traMADol 50 MG Tab PO PRN (16:52)
[2017-05-19] MEDS: Morphine 2 MG/ML Syringe IVPUSH PRN (18:42)
[2017-05-19] MEDS: ALPRAZolam 0.5 MG Tab PO SCH (22:34)
[2017-05-19] MEDS: Calcium Carbonate/Vitamin D3 1250 MG-200 Unit Tab PO SCH (22:34)
[2017-05-19] MEDS: atorvaSTATin 20 MG Tab PO SCH (22:35)
[2017-05-20] MEDS: traMADol 50 MG Tab PO PRN ×2 (00:42→17:01)
[2017-05-20] MEDS: Levothyroxine 75 MCG Tab PO SCH (06:41)
[2017-05-20] MEDS: Enoxaparin 40 MG/0.4 ML Syringe SUBCUT SCH (10:02)
[2017-05-20] MEDS: Multivitamins, Therapeutic with Minerals Tab PO SCH (10:02)
[2017-05-20] MEDS: Aspirin 81 MG Tab.EC PO SCH (10:03)
[2017-05-20] MEDS: Clopidogrel 75 MG Tab PO SCH (10:03)
[2017-05-20] MEDS: Nystatin Topical Powder 30 GM Bottle TOP SCH ×2 (10:04→20:08)
[2017-05-20] MEDS ORDERED: Psyllium 0.52 GM Cap PO PRN (10:08)
[2017-05-20 12:35] LABS: ANION GAP 10.4; CHLORIDE,CL 98 mmol/L (101-111); SODIUM,NA 135 mmol/L (135-145)
[2017-05-20] MEDS: cefTRIAXone 2 GM Vial IVPUSH SCH (13:14)
[2017-05-20] MEDS: Loperamide 2 MG Cap PO PRN (13:14)
[2017-05-20] MEDS: Ondansetron 4 MG Tab.DIS PO PRN (14:12)
[2017-05-20] MEDS: Morphine 2 MG/ML Syringe IVPUSH PRN (17:35)
[2017-05-20] MEDS: atorvaSTATin 20 MG Tab PO SCH (20:07)
[2017-05-20] MEDS: Calcium Carbonate/Vitamin D3 1250 MG-200 Unit Tab PO SCH (20:08)
[2017-05-20] MEDS: ALPRAZolam 0.5 MG Tab PO SCH (20:09)
[2017-05-20] MEDS: Sodium Chloride 0.9% 10 ML Syringe FLUSH PRN (22:55)
[2017-05-21] MEDS: Sodium Chloride 0.9% 10 ML Syringe FLUSH PRN ×2 (02:33→13:00)
[2017-05-21] MEDS: Morphine 2 MG/ML Syringe IVPUSH PRN ×3 (02:33→22:51)
[2017-05-21] MEDS: ALPRAZolam 0.5 MG Tab PO PRN ×2 (02:53→15:25)
[2017-05-21] MEDS: Levothyroxine 75 MCG Tab PO SCH (06:09)
[2017-05-21] MEDS: Multivitamins, Therapeutic with Minerals Tab PO SCH (08:45)
[2017-05-21] MEDS: Aspirin 81 MG Tab.EC PO SCH (08:45)
[2017-05-21] MEDS: Clopidogrel 75 MG Tab PO SCH (08:47)
[2017-05-21] MEDS: Enoxaparin 40 MG/0.4 ML Syringe SUBCUT SCH (08:48)
[2017-05-21] MEDS: Nystatin Topical Powder 30 GM Bottle TOP SCH ×2 (08:48→20:49)
--- NOTE | 2017-05-21 12:03 | CT ---
Clinical history: 81-year-old female hospitalized with abdominal pain with a history of previous chol ecystectomy, C. Diphtheriae and fibromyositis.
[2017-05-21] MEDS: cefTRIAXone 2 GM Vial IVPUSH SCH (13:02)
[2017-05-21] MEDS: Dextrose 5%-0.9% NaCl with KCl 1,000 ML IV SCH (13:05)
[2017-05-21] MEDS: traMADol 50 MG Tab PO PRN (15:25)
[2017-05-21] MEDS ORDERED: Morphine 2 MG/ML Syringe IVPUSH ONE (15:34)
[2017-05-21] MEDS: Ondansetron 4 MG Tab.DIS PO PRN (20:13)
[2017-05-21] MEDS: Calcium Carbonate/Vitamin D3 1250 MG-200 Unit Tab PO SCH (20:47)
[2017-05-21] MEDS: atorvaSTATin 20 MG Tab PO SCH (20:47)
[2017-05-21] MEDS: Loperamide 2 MG Cap PO PRN (20:48)
[2017-05-21] MEDS: Acetaminophen 325 MG Tab PO PRN (20:48)
[2017-05-21] MEDS: ALPRAZolam 0.5 MG Tab PO SCH (20:48)
[2017-05-22] MEDS: traMADol 50 MG Tab PO PRN ×3 (00:07→19:53)
[2017-05-22] MEDS: Dextrose 5%-0.9% NaCl with KCl 1,000 ML IV SCH (02:36)
[2017-05-22] MEDS: Levothyroxine 75 MCG Tab PO SCH (05:39)
[2017-05-22] MEDS: Multivitamins, Therapeutic with Minerals Tab PO SCH (09:38)
[2017-05-22] MEDS: Clopidogrel 75 MG Tab PO SCH (09:39)
[2017-05-22] MEDS: Enoxaparin 40 MG/0.4 ML Syringe SUBCUT SCH (09:39)
[2017-05-22] MEDS: Aspirin 81 MG Tab.EC PO SCH (09:39)
[2017-05-22] MEDS: Ondansetron 4 MG Tab.DIS PO PRN (10:48)
[2017-05-22] MEDS: metroNIDAZOLE/Normal Saline 500 MG in Premix Bag 100 BAG IV SCH ×3 (11:24→21:46)
--- NOTE | 2017-05-22 11:50 | PN ---
DATE: 05/22/2017 The patient this morning is feeling slightly better with regard to her abdominal pain and the patient had some improvement with IV fluids that were started yesterday, but the patient still has some loose bowel movement, and stool was sent for C. diff. Results are still pending. Otherwise, the patient denies any chest pain, shortness of breath, or any headache. OBJECTIVE: Vital Signs: Blood pressure is 116/52, pulse of 64, respirations 20, temperature of 97.5. Heart: Regular rate and rhythm. Normal S1 and S2. No gallops. No rubs. Lungs: Equal bilaterally. No crackles. No wheezing. Abdomen: Soft, but there are hyperactive bowel sounds. There is still some mild reproducible tenderness on the periumbilical area but no rebound. Extremities: Negative for any significant pedal edema or calf tenderness. MEDICATIONS: Reviewed. PLAN: We will continue with her present management and I am going to add Flagyl 500 mg IV q.8 hours in addition to her Rocephin and continue with IV fluids. Once we get the official report of stool C. diff, we will make a decision if we need to continue with Flagyl. Otherwise, we will continue with the rest of her management and PT and OT. [facility] /[id number]
[2017-05-22] MEDS: Sodium Chloride 0.9% 10 ML Syringe FLUSH PRN (14:00)
[2017-05-22] MEDS: cefTRIAXone 2 GM Vial IVPUSH SCH (14:00)
[2017-05-22] MEDS: Nystatin Topical Powder 30 GM Bottle TOP SCH ×3 (14:10→20:06)
[2017-05-22] MEDS ORDERED: Dextrose 5%-0.9% NaCl 1,000 ML IV SCH (16:02)
[2017-05-22] MEDS: ALPRAZolam 0.5 MG Tab PO PRN ×2 (16:18→21:46)
[2017-05-22] MEDS: atorvaSTATin 20 MG Tab PO SCH ×2 (19:52→20:06)
[2017-05-22] MEDS: ALPRAZolam 0.5 MG Tab PO SCH ×2 (19:52→20:06)
[2017-05-22] MEDS: Calcium Carbonate/Vitamin D3 1250 MG-200 Unit Tab PO SCH ×2 (19:52→20:06)
[2017-05-22] MEDS: Morphine 2 MG/ML Syringe IVPUSH PRN (21:45)
[2017-05-23] MEDS: Levothyroxine 75 MCG Tab PO SCH (06:04)
[2017-05-23] MEDS: metroNIDAZOLE/Normal Saline 500 MG in Premix Bag 100 BAG IV SCH (06:04)
[2017-05-23 07:26] LABS: ANION GAP 9.3; CHLORIDE,CL 107 mmol/L (101-111); SODIUM,NA 140 mmol/L (135-145)
--- NOTE | 2017-05-23 09:06 | PN ---
DATE: 05/23/2017 SUBJECTIVE: The patient continues to do well. So far, she has not had any abdominal pain and appetite has been good. The patient denies any chest pain, shortness of breath, nor any other complaints. OBJECTIVE: Vital Signs: Blood pressure is 145/68, pulse of 76, respirations 20, temperature of 98.1. Heart: Regular rate and rhythm. Normal S1 and S2. No gallops. No rubs. Lungs: Equal bilaterally. No crackles. No wheezing. Abdomen: Soft and nontender. Bowel sounds positive. Extremities: Negative for any significant pedal edema. No calf tenderness. MEDICATIONS: Reviewed. PLAN: We will discontinue the IV fluids and we will see how she does as her appetite has been good. We will await the result of stool for C. diff and if this is negative, we will also discontinue the IV Flagyl. [facility] /[id number]
[2017-05-23] MEDS: Ondansetron 4 MG Tab.DIS PO PRN (09:43)
[2017-05-23] MEDS: Aspirin 81 MG Tab.EC PO SCH (10:18)
[2017-05-23] MEDS: Multivitamins, Therapeutic with Minerals Tab PO SCH (10:18)
[2017-05-23] MEDS: Enoxaparin 40 MG/0.4 ML Syringe SUBCUT SCH (10:18)
[2017-05-23] MEDS: Clopidogrel 75 MG Tab PO SCH (10:18)
[2017-05-23] MEDS: Nystatin Topical Powder 30 GM Bottle TOP SCH ×2 (10:19→21:29)
[2017-05-23] MEDS: traMADol 50 MG Tab PO PRN ×2 (13:41→21:27)
[2017-05-23] MEDS: cefTRIAXone 2 GM Vial IVPUSH SCH (14:01)
[2017-05-23] MEDS: ALPRAZolam 0.5 MG Tab PO PRN (14:39)
[2017-05-23] MEDS: Morphine 2 MG/ML Syringe IVPUSH PRN ×2 (15:56→21:28)
[2017-05-23] MEDS: ALPRAZolam 0.5 MG Tab PO SCH (21:26)
[2017-05-23] MEDS: atorvaSTATin 20 MG Tab PO SCH (21:26)
[2017-05-23] MEDS: Calcium Carbonate/Vitamin D3 1250 MG-200 Unit Tab PO SCH (21:27)
[2017-05-23] MEDS: Sodium Chloride 0.9% 10 ML Syringe FLUSH PRN (21:27)
[2017-05-24] MEDS: Levothyroxine 75 MCG Tab PO SCH (06:27)
[2017-05-24] MEDS: traMADol 50 MG Tab PO PRN ×2 (09:56→22:20)
[2017-05-24] MEDS: Aspirin 81 MG Tab.EC PO SCH (09:57)
[2017-05-24] MEDS: Nystatin Topical Powder 30 GM Bottle TOP SCH ×2 (09:57→22:20)
[2017-05-24] MEDS: Enoxaparin 40 MG/0.4 ML Syringe SUBCUT SCH (09:57)
[2017-05-24] MEDS: Multivitamins, Therapeutic with Minerals Tab PO SCH (09:57)
[2017-05-24] MEDS: Clopidogrel 75 MG Tab PO SCH (09:57)
[2017-05-24] MEDS: Morphine 2 MG/ML Syringe IVPUSH PRN ×3 (13:41→22:28)
[2017-05-24] MEDS: cefTRIAXone 2 GM Vial IVPUSH SCH (13:42)
[2017-05-24] MEDS: ALPRAZolam 0.5 MG Tab PO PRN (13:42)
[2017-05-24] MEDS: atorvaSTATin 20 MG Tab PO SCH (22:19)
[2017-05-24] MEDS: ALPRAZolam 0.5 MG Tab PO SCH (22:20)
[2017-05-24] MEDS: Calcium Carbonate/Vitamin D3 1250 MG-200 Unit Tab PO SCH (22:20)
[2017-05-24] MEDS: Sodium Chloride 0.9% 10 ML Syringe FLUSH PRN (22:26)
[2017-05-24] MEDS: Ondansetron 4 MG Tab.DIS PO PRN (22:26)
[2017-05-25] MEDS: Levothyroxine 75 MCG Tab PO SCH (06:30)
[2017-05-25] MEDS: Clopidogrel 75 MG Tab PO SCH (09:05)
[2017-05-25] MEDS: Multivitamins, Therapeutic with Minerals Tab PO SCH (09:05)
[2017-05-25] MEDS: Enoxaparin 40 MG/0.4 ML Syringe SUBCUT SCH (09:05)
[2017-05-25] MEDS: Aspirin 81 MG Tab.EC PO SCH (09:05)
[2017-05-25] MEDS: Nystatin Topical Powder 30 GM Bottle TOP SCH ×2 (09:06→22:19)
[2017-05-25] MEDS ORDERED: Iopamidol 612 MG/ML 75 ML Bottle IVPUSH ONE (10:44)
--- NOTE | 2017-05-25 10:57 | PCM.PN ---
- General Info Date of Service: 05/25/17 Admission Dx/Problem (Free Text): weakness after cva Subjective Update: Patient stated that she has been having abdominal pain for the last 2 weeks. It started after her stroke. She said it was first in the lower abdomen and right lower quadrant but recently only in the lower abdomen. She described the pain as sever, sharp, intermittent, it last for hours and gets better with pain medicine. She admitted having 2-3 episodes of watery diarrhea and passing a lot of flatus for the last 2 weeks. She is still having left-sided weakness and difficulty speaking. No nausea or vomiting. She denies fever, chills, chest pain , shortness breath, any other symptoms or concern - Patient Data Vitals - Most Recent: Last Vital Signs Temp 37.0 C 05/25/17 07:00 Pulse 78 05/25/17 07:00 Resp 20 05/25/17 07:00 BP 87/60 L 05/25/17 07:00 Pulse Ox 94 L 05/25/17 07:00 Weight - Most Recent: 62.142 kg I&O - Last 24 Hours: Intake & Output 05/24/17 05/25/17 05/25/17 22:59 06:59 14:59 Intake Total 100 60 Output Total 325 Balance 100 -325 60 Med Orders - Current: Current Medications Acetaminophen (Tylenol) 650 mg PO Q4H PRN PRN Reason: Pain (Mild 1-3)/fever Last Admin: 05/21/17 20:48 Dose: 650 mg Alprazolam (Xanax) 0.5 mg PO BEDTIME [facility] Last Admin: 05/24/17 22:20 Dose: 0.5 mg Alprazolam (Xanax) 0.5 mg PO BID PRN PRN Reason: Anxiety Last Admin: 05/24/17 13:42 Dose: 0.5 mg Aspirin (Halfprin) 81 mg PO DAILY [facility] Last Admin: 05/25/17 09:05 Dose: 81 mg Atorvastatin Calcium (Lipitor) 80 mg PO BEDTIME [facility] Last Admin: 05/24/17 22:19 Dose: 80 mg Azathioprine (Imuran) 50 mg PO BID [facility] Last Admin: 05/25/17 09:05 Dose: 50 mg Calcium Carbonate (Calcium Carbonate/Vitamin D 1250 Mg-200 Unit) 1 tab PO BEDTIME [facility] Last Admin: 05/24/17 22:20 Dose: 1 tab Ceftriaxone Sodium (Rocephin) 2 gm IVPUSH Q24H [facility] Last Admin: 05/24/17 13:42 Dose: 2 gm Clopidogrel Bisulfate (Plavix) 75 mg PO DAILY [facility] Last Admin: 05/25/17 09:05 Dose: 75 mg Enoxaparin Sodium (Lovenox) 40 mg SUBCUT DAILY [facility] Last Admin: 05/25/17 09:05 Dose: 40 mg Iopamidol (Isovue-300 (61%)) 75 ml IVPUSH ONETIME ONE Stop: 05/25/17 10:45 Levothyroxine Sodium (Levothyroxine) 75 mcg PO ACBREAKFAST [facility] Last Admin: 05/25/17 06:30 Dose: 75 mcg Loperamide HCl (Imodium) 4 mg PO Q6H PRN PRN Reason: Diarrhea Last Admin: 05/21/17 20:48 Dose: 4 mg Morphine Sulfate (Morphine) 1 mg IVPUSH Q4H PRN PRN Reason: pain Last Admin: 05/24/17 22:28 Dose: 1 mg Multivitamins/Minerals (Vitamins And Minerals) 1 tab PO DAILY [facility] Last Admin: 05/25/17 09:05 Dose: 1 tab Nystatin (Nystop) 0 gm TOP BID [facility] Last Admin: 05/25/17 09:06 Dose: 1 applic Ondansetron HCl (Zofran Odt) 4 mg PO Q6H PRN PRN Reason: Nausea Last Admin: 05/24/17 22:26 Dose: 4 mg Sodium Chloride (Saline Flush) 10 ml FLUSH ASDIRECTED PRN PRN Reason: Keep Vein Open Last Admin: 05/24/17 22:26 Dose: 10 ml Tramadol HCl (Ultram) 50 mg PO Q8H PRN PRN Reason: Pain Last Admin: 05/24/17 22:20 Dose: 50 mg Discontinued Medications Alprazolam (Xanax) 0.5 mg PO ONETIME ONE Stop: 05/14/17 21:57 Last Admin: 05/14/17 22:17 Dose: 0.5 mg Potassium Chloride/Dextrose/Sod Cl (D5 Ns With 20 Meq Kcl) 1,000 mls @ 75 mls/ hr IV ASDIRECTED [facility] Last Infusion: 05/22/17 18:04 Dose: Infused Metronidazole 500 mg/ Premix 100 mls @ 100 mls/hr IV Q8HR [facility] Last Admin: 05/23/17 06:04 Dose: 100 mls/hr Dextrose/Sodium Chloride (Dextrose 5%-Normal Saline) 1,000 mls @ 75 mls/hr IV ASDIRECTED [facility] Last Admin: 05/22/17 18:05 Dose: 75 mls/hr Iopamidol (Isovue-300 (61%)) 75 ml IVPUSH ONETIME ONE Stop: 05/18/17 20:17 Last Admin: 05/18/17 22:42 Dose: 75 ml Morphine Sulfate (Morphine) 1 mg IVPUSH ONETIME ONE Stop: 05/18/17 20:18 Last Admin: 05/18/17 20:38 Dose: 1 mg Morphine Sulfate (Morphine) 1 mg IVPUSH Q6H PRN PRN Reason: Pain (severe 7-10) Last Admin: 05/21/17 13:24 Dose: 1 mg Morphine Sulfate (Morphine) 1 mg IVPUSH ONETIME ONE Stop: 05/21/17 15:35 Last Admin: 05/21/17 17:40 Dose: Not Given Non-Formulary Medication (Fish Oil/[place]-3 Fatty Acids [Fish Oil 1,000 Mg]) 1 gm PO BID [facility] Oxycodone/Acetaminophen (Percocet 325-5 Mg) 1 tab PO ONETIME ONE Stop: 05/18/17 06:21 Last Admin: 05/18/17 06:35 Dose: 1 tab Psyllium Hydrophilic Mucilloid (Metamucil) 1.04 gm PO DAILY PRN PRN Reason: diarrhea Zolpidem Tartrate (Ambien) 5 mg PO BEDTIME PRN PRN Reason: Sleep Last Admin: 05/13/17 21:12 Dose: 5 mg - Exam General: Alert, Oriented, No Acute Distress. No: Severe Distress, Sedated, Lethargic, Obtunded HEENT: Pupils Equal, Pupils Reactive, EOMI Neck: Supple, Trachea Midline Lungs: Clear to Auscultation, Normal Respiratory Effort Cardiovascular: Regular Rate, Regular Rhythm GI/Abdominal Exam: Normal Bowel Sounds, Soft, Non-Tender, No Organomegaly, No Distention, No Abnormal Bruit, No Mass (Female) Exam: Deferred Extremities: Normal Inspection, Normal Range of Motion, Non-Tender, No Pedal Edema Skin: Dry, Intact Neurological: Other (she ahs dysphona, left side weakness) - Problem List & Annotations (1) Abdominal pain SNOMED Code(s): 48283496 Code(s): R10.9 - UNSPECIFIED ABDOMINAL PAIN Status: Acute Current Visit: Yes (2) Diarrhea SNOMED Code(s): 35364025 Code(s): R19.7 - DIARRHEA, UNSPECIFIED Status: Acute Current Visit: Yes (3) Cerebral infarction SNOMED Code(s): 175549423 Code(s): I63.9 - CEREBRAL INFARCTION, UNSPECIFIED Status: Acute Current Visit: No Qualifiers: Cerebral infarction mechanism: other mechanism Qualified Code(s): I63.8 - Other cerebral infarction - Problem List Review Problem List Initiated/Reviewed/Updated: Yes - My Orders Last 24 Hours: My Active Orders 05/25/17 10:38 CULTURE URINE [RM] Routine UA W/MICROSCOPIC [URIN] Routine 05/25/17 10:41 Abdomen Pelvis w Cont [CT] Routine 05/25/17 10:42 C-REACTIVE PROTEIN [CHEM] Routine CBC WITH AUTO DIFF [HEME] Routine COMPREHENSIVE METABOLIC PN,CMP [CHEM] Routine LACTIC ACID [CHEM] Routine LIPASE [CHEM] Routine 05/25/17 10:44 Iopamidol [Isovue-300 (61%)] 75 ml IVPUSH ONETIME ONE 05/25/17 10:46 CULTURE STOOL [RM] Routine 05/25/17 10:47 OVA & PARASITES Routine - Plan Plan:: 81-year-old the female with past medical history of hyperlipidemia, hypertension , hypothyroidism, myositis. She was admitted at [facility] for sudden onset of left-sided weakness and right facial droop. 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 CT angiograms of the head and neck showed occlusion of the right internal carotid artery, 50% occlusion of the left internal carotid artery, some subclavian artery stenosis too, and a right MCA ischemic infarct. She was managed medically and discharged to swing bed for continue straightening. Patient has been complaining of abdominal pain, diarrhea, flatus for the last 2 weeks. #Abdominal pain, diarrhea, flatus Patient was diagnosed with ileus at all true after having CT abdomen and pelvis. Repeated CT without contrast recently did not reveal explaining etiology. C. difficile at [facility] and here were negative -I'll do blood work including CBC, CMP, lipase, CRP, urinalysis, urine drug screen, lactic acid, stool culture -I'll do CT abdomen and pelvis with oral and IV contrast to rule out volvulus, ischemia, partial small bowel obstruction, appendicitis, etc. patient is not able to swallow the large amount of the oral contrast due to her stroke so we' ll try to do NG tube. However we are counseling with the radiology team on that for now -I discussed the case with her primary care provider Dr. Villa over the phone. He thinks that IV fluid and Flagyl helped some so he wouldn't recommend repeating them. Also he agrees with the CT scan of abdomen and pelvis with contrast if radiology okay with that. I called radiology department and they are counseling with her physician and they'll get back to us -We'll do trial of gentle IV fluid and Flagyl -If workup is negative then we'll consider giving Imodium #Acute ischemic stroke with left-sided hemiparesis. -The patient was noted to have significant carotid disease. She was not a candidate for interventions. -Continue aspirin, plavix, lipitor, physical Therapy, Occupational Therapy, and Speech and Language Pathology treatments. -video swallow study suggested soft Diet -Follows with Dr Jesus #E.Coli sepsis -aspiration vs translocation from SBO -continue Ceftriaxone for 2 weeks -follws with Dr Brownlee/Meghann from ID #Acute urinary retention -Maintain catheter, [place] #Acute small bowel obstruction. It was resolved but now having abd pain/diarrhea #Hypernatremia along with hypokalemia. Improved Monitor periodically #Myositis Patient's supervisor cab recommending stopping Azathoprine for 1 months DVT prophylaxis with subcutaneous Lovenox I discussed CODE STATUS with patient and who was admitted side and they both want her to be full code but not on artificial life support Plan of care was discussed with patient and her and they verbalized understanding agreed with it
[2017-05-25 11:11] LABS: CHLORIDE,CL 98 mmol/L (101-111); SODIUM,NA 134 mmol/L (135-145)
[2017-05-25] MEDS: Ondansetron 4 MG Tab.DIS PO PRN (12:55)
[2017-05-25] MEDS: cefTRIAXone 2 GM Vial IVPUSH SCH (12:55)
[2017-05-25] MEDS ORDERED: Barium Sulfate w/v 2.1% Oral Susp 450 ML Bottle NGTUBE ONE ×2 (13:23→14:20)
[2017-05-25] MEDS: metroNIDAZOLE/Normal Saline 500 MG in Premix Bag 100 BAG IV SCH ×2 (14:16→22:18)
[2017-05-25] MEDS: Morphine 2 MG/ML Syringe IVPUSH PRN (14:17)
[2017-05-25] MEDS: traMADol 50 MG Tab PO PRN (16:17)
[2017-05-25] MEDS: ALPRAZolam 0.5 MG Tab PO PRN (16:18)
[2017-05-25] MEDS: Sodium Chloride 0.9% 1,000 ML IV SCH (18:13)
[2017-05-25] MEDS: Ciprofloxacin in D5W 400 MG in Premix Bag 1 BAG IV SCH ×2 (18:38)
[2017-05-25] MEDS: Calcium Carbonate/Vitamin D3 1250 MG-200 Unit Tab PO SCH (22:15)
[2017-05-25] MEDS: atorvaSTATin 20 MG Tab PO SCH (22:15)
[2017-05-25] MEDS: ALPRAZolam 0.5 MG Tab PO SCH (22:17)
[2017-05-26] MEDS: Ciprofloxacin in D5W 400 MG in Premix Bag 1 BAG IV SCH ×4 (05:21→18:21)
[2017-05-26] MEDS: Levothyroxine 75 MCG Tab PO SCH (05:30)
[2017-05-26] MEDS: traMADol 50 MG Tab PO PRN ×2 (05:30→17:48)
[2017-05-26] MEDS: metroNIDAZOLE/Normal Saline 500 MG in Premix Bag 100 BAG IV SCH ×3 (06:50→22:59)
[2017-05-26] MEDS: Aspirin 81 MG Tab.EC PO SCH (10:29)
[2017-05-26] MEDS: Clopidogrel 75 MG Tab PO SCH (10:29)
[2017-05-26] MEDS: Enoxaparin 40 MG/0.4 ML Syringe SUBCUT SCH (10:30)
[2017-05-26] MEDS: Nystatin Topical Powder 30 GM Bottle TOP SCH ×2 (10:31→23:29)
[2017-05-26] MEDS: Multivitamins, Therapeutic with Minerals Tab PO SCH (10:31)
[2017-05-26] MEDS: cefTRIAXone 2 GM Vial IVPUSH SCH (14:03)
[2017-05-26] MEDS: Sodium Chloride 0.9% 1,000 ML IV SCH (21:21)
[2017-05-26] MEDS: Ondansetron 4 MG Tab.DIS PO PRN (23:12)
[2017-05-26] MEDS: Morphine 2 MG/ML Syringe IVPUSH PRN (23:23)
[2017-05-26] MEDS: Calcium Carbonate/Vitamin D3 1250 MG-200 Unit Tab PO SCH (23:29)
[2017-05-26] MEDS: atorvaSTATin 20 MG Tab PO SCH (23:29)
[2017-05-26] MEDS: ALPRAZolam 0.5 MG Tab PO SCH (23:30)
[2017-05-27] MEDS: Ciprofloxacin in D5W 400 MG in Premix Bag 1 BAG IV SCH ×2 (05:21)
[2017-05-27] MEDS: Levothyroxine 75 MCG Tab PO SCH (05:31)
[2017-05-27] MEDS: metroNIDAZOLE/Normal Saline 500 MG in Premix Bag 100 BAG IV SCH (06:54)
[2017-05-27] MEDS: traMADol 50 MG Tab PO PRN (07:02)
[2017-05-27] MEDS: Morphine 2 MG/ML Syringe IVPUSH PRN (08:12)
[2017-05-27] MEDS: Ondansetron 4 MG Tab.DIS PO PRN (08:25)
[2017-05-27] MEDS: Multivitamins, Therapeutic with Minerals Tab PO SCH (10:31)
[2017-05-27] MEDS: Clopidogrel 75 MG Tab PO SCH (10:31)
[2017-05-27] MEDS: Aspirin 81 MG Tab.EC PO SCH (10:31)
[2017-05-27] MEDS: Enoxaparin 40 MG/0.4 ML Syringe SUBCUT SCH (10:32)
[2017-05-27] MEDS: Nystatin Topical Powder 30 GM Bottle TOP SCH (10:32)
--- NOTE | 2017-05-27 11:35 | PCM.DCSUM1 ---
Discharge Summary - Hospital Course Free Text/Narrative:: 81-year-old the female with past medical history of hyperlipidemia, hypertension , hypothyroidism, myositis. She was admitted at [facility] for sudden onset of left-sided weakness and right facial droop. 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 CT angiograms of the head and neck showed occlusion of the right internal carotid artery, 50% occlusion of the left internal carotid artery, some subclavian artery stenosis too, and a right MCA ischemic infarct. She was managed medically and discharged to swing bed for continue straightening. Patient has been complaining of abdominal pain, diarrhea, flatus for the last 2 weeks. #Abdominal pain, diarrhea, flatus Patient was diagnosed with ileus at all true after having CT abdomen and pelvis. Repeated CT without contrast recently did not reveal explaining etiology. C. difficile at [facility] and here were negative -On 05/25/17 her CBC, CMP, lipase, CRP, urinalysis, urinalysis, lactic acid, stool culture/ova and parasites, were significant only for CRP of 1.7 (was 1.2 the day before) and stool and urine culture growing yeast. Otherwise her stool culture was negative. Stool is negative for Giardia and cryptosporidium antigen. - CT abdomen and pelvis with IV and oral contrast (via NG tube) was done on 05/25 reported possible mild enteritis/colitis. -Last weekend she had trial of IV fluid and Flagyl which according to her primary care provider but was somewhat helping. However it was discontinued. After getting the CT report on 05/25/17 concerning for possible enteritis/ colitis she was started on Flagyl 500 mg IV every 8 hours and ciprofloxacin 400 mg IV twice a day and normal saline at 50 mL per hour. Patient has poor oral intake due to her stroke -Abdominal pain and diarrhea improved yesterday however today's they come back and more severe. Despite using morphine and tramadol this morning she continued to have lower abdominal and right lower quadrant pain. I spoke to Dr. Rios in the clinic for GI consult. He recommended changing antibiotics to oral vancomycin as this could be still C. difficile despite negative testing. Dr. Rios is leaving town today. Patient has history of C. difficile 2 years ago. I discussed that with patient, her , her son Isaias. At this time they all want to be transferred to [facility] to be seen by GI specialist there. Case was discussed with Dr. Costa from [facility] in [place] who kindly accepted the patient to be transferred to his service #Acute ischemic stroke with left-sided hemiparesis. -The patient was noted to have significant carotid disease. She was not a candidate for interventions. -Continue aspirin, plavix, lipitor, physical Therapy, Occupational Therapy, and Speech and Language Pathology treatments. -video swallow study suggested soft Diet -Follows with Dr Jesus -Patient has not been able to participate with physical therapy the last 2 days due to feeling tired and having abdominal pain #E.Coli sepsis -aspiration vs translocation from SBO -continue Ceftriaxone for 2 weeks -follws with Dr Brownlee/Meghann from ID #Acute urinary retention -Maintain catheter, Noonan -Today and discussed with patient and family during a trial of pulling out the Noonan catheter to see if that may relieve her lower abdominal pain. #Acute small bowel obstruction. It was resolved but now having abd pain/diarrhea #Hypernatremia along with hypokalemia. Improved Monitor periodically #Myositis Patient's snaker tractor driver recommending stopping Azathoprine for 1 months Yesterday I discussed the case over the phone with her snaker tractor driver in [place]. Her snaker tractor driver recommended stopping Azathoprine for one month and that she does not need to be on prednisone. She also recommended watching for proximal weakness and if any then she needs a rheumatology consult. At this time patient does not have paroxysmal weakness also she has generalized weakness from her overall condition. CPK was within normal limits yesterday. Security Operations Manager recommended against routine CPK testing and instead rely on physical exam DVT prophylaxis with subcutaneous Lovenox I discussed CODE STATUS with patient and who was admitted side and they both want her to be full code but not on artificial life support Plan of care was discussed with patient and her and they verbalized understanding agreed with it - Discharge Data Discharge Date: 05/27/17 Discharge Disposition: DC/Tfer to Acute Hospital 02 Condition: Stable - Discharge Diagnosis/Problem(s) (1) Abdominal pain SNOMED Code(s): 19296304 ICD Code: R10.9 - UNSPECIFIED ABDOMINAL PAIN Status: Acute Current Visit : Yes (2) Diarrhea SNOMED Code(s): 92866873 ICD Code: R19.7 - DIARRHEA, UNSPECIFIED Status: Acute Current Visit: Yes (3) Cerebral infarction SNOMED Code(s): 170595959 ICD Code: I63.9 - CEREBRAL INFARCTION, UNSPECIFIED Status: Acute Current Visit: No Qualifiers: Cerebral infarction mechanism: other mechanism Qualified Code(s): I63.8 - Other cerebral infarction - Patient Summary/Data Consults: Consultations 05/12/17 12:14 OT Evaluation and Treatment [CONS] Routine PT Evaluation and Treatment [CONS] Routine WIRELINE OPERATOR Evaluation and Treatment [CONS] Routine - Discharge Plan Home Medications: Home Meds Alendronate Sodium [Alendronate] 70 mg PO .SAT 04/18/17 [History] Calcium Carbonate/Vitamin D3 [Caltrate 600+D 1500 MG-400 Units] 1 tab PO BEDTIME 04/18/17 [History] Fish Oil/[place]-3 Fatty Acids [Fish Oil 1,000 MG] 1 gm PO BIDMEALS 04/18/17 [ History] Levothyroxine 75 mcg PO ACBREAKFAST 04/18/17 [History] azaTHIOprine [Azathioprine] 50 mg PO BIDMEALS 04/18/17 [History] Clopidogrel [Plavix] 75 mg PO DAILY #30 tablet 04/19/17 [Rx] Aspirin [Halfprin] 81 mg PO DAILY 05/12/17 [History] Multivit-Min/FA/Lycopene/Lut [Centrum Silver Tablet] 1 tab PO WITHDINNER [History] atorvaSTATin [Lipitor] 80 mg PO BEDTIME 05/12/17 [History] - Discharge Summary/Plan Comment DC Time >30 min.: Yes (45 minutes were spent with discharge planning) - General Info Date of Service: 05/27/17 Admission Dx/Problem (Free Text: weakness after cva Subjective Update: She is still having left-sided weakness and difficulty speaking.She denies fever , chills, chest pain, cough, shortness breath, vaginal bleeding, vaginal discharge, worsening of her left sided weakness, any other symptoms or concern - Patient Data Vitals - Most Recent: Last Vital Signs Temp 36.8 C 05/27/17 07:50 Pulse 83 05/27/17 07:50 Resp 20 05/27/17 07:50 BP 158/81 H 05/27/17 07:50 Pulse Ox 93 L 05/27/17 07:50 Weight - Most Recent: 62.142 kg I&O - Last 24 hours: Intake & Output 05/26/17 05/27/17 05/27/17 22:59 06:59 14:59 Intake Total 320 1197 Output Total 350 775 Balance -30 422 Lab Results - Last 24 hrs: Laboratory Results - last 24 hr 05/26/17 Range/Units 10:42 Creatine Kinase 27 (26-174) IU/L AL Results - Last 24 hrs: Microbiology 05/26/17 10:45 Shiga Toxin I & II - Final Stool / Feces 05/26/17 10:45 Cryptosporidium/Giardia - Final Stool / Feces 05/26/17 10:45 Stool Culture - Preliminary Stool / Feces 05/25/17 13:05 Urine Culture - Final Urine, Catheterized Med Orders - Current: Current Medications Acetaminophen (Tylenol) 650 mg PO Q4H PRN PRN Reason: Pain (Mild 1-3)/fever Last Admin: 05/21/17 20:48 Dose: 650 mg Alprazolam (Xanax) 0.5 mg PO BEDTIME [facility] Last Admin: 05/26/17 23:30 Dose: 0.5 mg Alprazolam (Xanax) 0.5 mg PO BID PRN PRN Reason: Anxiety Last Admin: 05/25/17 16:18 Dose: 0.5 mg Aspirin (Halfprin) 81 mg PO DAILY [facility] Last Admin: 05/27/17 10:31 Dose: 81 mg Atorvastatin Calcium (Lipitor) 80 mg PO BEDTIME [facility] Last Admin: 05/26/17 23:29 Dose: 80 mg Calcium Carbonate (Calcium Carbonate/Vitamin D 1250 Mg-200 Unit) 1 tab PO BEDTIME [facility] Last Admin: 05/26/17 23:29 Dose: 1 tab Ceftriaxone Sodium (Rocephin) 2 gm IVPUSH Q24H [facility] Last Admin: 05/26/17 14:03 Dose: 2 gm Clopidogrel Bisulfate (Plavix) 75 mg PO DAILY [facility] Last Admin: 05/27/17 10:31 Dose: 75 mg Enoxaparin Sodium (Lovenox) 40 mg SUBCUT DAILY [facility] Last Admin: 05/27/17 10:32 Dose: 40 mg Metronidazole 500 mg/ Premix 100 mls @ 100 mls/hr IV Q8HR [facility] Last Admin: 05/27/17 06:54 Dose: 100 mls/hr Sodium Chloride (Normal Saline) 1,000 mls @ 50 mls/hr IV ASDIRECTED [facility] Last Admin: 05/26/17 21:21 Dose: 50 mls/hr Ciprofloxacin/Dextrose 400 mg/ (Premix) 200 mls @ 200 mls/hr IV Q12H [facility] Last Admin: 05/27/17 05:21 Dose: 200 mls/hr Levothyroxine Sodium (Levothyroxine) 75 mcg PO ACBREAKFAST [facility] Last Admin: 05/27/17 05:31 Dose: 75 mcg Loperamide HCl (Imodium) 4 mg PO Q6H PRN PRN Reason: Diarrhea Last Admin: 05/21/17 20:48 Dose: 4 mg Morphine Sulfate (Morphine) 1 mg IVPUSH Q4H PRN PRN Reason: pain Last Admin: 05/27/17 08:12 Dose: 1 mg Multivitamins/Minerals (Vitamins And Minerals) 1 tab PO DAILY [facility] Last Admin: 05/27/17 10:31 Dose: 1 tab Nystatin (Nystop) 0 gm TOP BID [facility] Last Admin: 05/27/17 10:32 Dose: 1 applic Ondansetron HCl (Zofran Odt) 4 mg PO Q6H PRN PRN Reason: Nausea Last Admin: 05/27/17 08:25 Dose: 4 mg Sodium Chloride (Saline Flush) 10 ml FLUSH ASDIRECTED PRN PRN Reason: Keep Vein Open Last Admin: 05/24/17 22:26 Dose: 10 ml Tramadol HCl (Ultram) 50 mg PO Q8H PRN PRN Reason: Pain Last Admin: 05/27/17 07:02 Dose: 50 mg Discontinued Medications Alprazolam (Xanax) 0.5 mg PO ONETIME ONE Stop: 05/14/17 21:57 Last Admin: 05/14/17 22:17 Dose: 0.5 mg Azathioprine (Imuran) 50 mg PO BID [facility] Last Admin: 05/25/17 09:05 Dose: 50 mg Barium Sulfate (Readi-Cat 2) 450 ml NGTUBE ONETIME ONE Stop: 05/25/17 13:24 Last Admin: 05/25/17 13:35 Dose: 450 ml Barium Sulfate (Readi-Cat 2) 450 ml NGTUBE ONETIME ONE Stop: 05/25/17 14:21 Last Admin: 05/25/17 14:17 Dose: 450 ml Potassium Chloride/Dextrose/Sod Cl (D5 Ns With 20 Meq Kcl) 1,000 mls @ 75 mls/ hr IV ASDIRECTED [facility] Last Infusion: 05/22/17 18:04 Dose: Infused Metronidazole 500 mg/ Premix 100 mls @ 100 mls/hr IV Q8HR [facility] Last Admin: 05/23/17 06:04 Dose: 100 mls/hr Dextrose/Sodium Chloride (Dextrose 5%-Normal Saline) 1,000 mls @ 75 mls/hr IV ASDIRECTED [facility] Last Admin: 05/22/17 18:05 Dose: 75 mls/hr Iopamidol (Isovue-300 (61%)) 75 ml IVPUSH ONETIME ONE Stop: 05/18/17 20:17 Last Admin: 05/18/17 22:42 Dose: 75 ml Iopamidol (Isovue-300 (61%)) 75 ml IVPUSH ONETIME ONE Stop: 05/25/17 10:45 Last Admin: 05/25/17 13:55 Dose: 75 ml Morphine Sulfate (Morphine) 1 mg IVPUSH ONETIME ONE Stop: 05/18/17 20:18 Last Admin: 05/18/17 20:38 Dose: 1 mg Morphine Sulfate (Morphine) 1 mg IVPUSH Q6H PRN PRN Reason: Pain (severe 7-10) Last Admin: 05/21/17 13:24 Dose: 1 mg Morphine Sulfate (Morphine) 1 mg IVPUSH ONETIME ONE Stop: 05/21/17 15:35 Last Admin: 05/21/17 17:40 Dose: Not Given Non-Formulary Medication (Fish Oil/[place]-3 Fatty Acids [Fish Oil 1,000 Mg]) 1 gm PO BID [facility] Oxycodone/Acetaminophen (Percocet 325-5 Mg) 1 tab PO ONETIME ONE Stop: 05/18/17 06:21 Last Admin: 05/18/17 06:35 Dose: 1 tab Psyllium Hydrophilic Mucilloid (Metamucil) 1.04 gm PO DAILY PRN PRN Reason: diarrhea Zolpidem Tartrate (Ambien) 5 mg PO BEDTIME PRN PRN Reason: Sleep Last Admin: 05/13/17 21:12 Dose: 5 mg - Exam General: Reports: Alert, Oriented, Cooperative, No Acute Distress. Denies: Moderate Distress, Severe Distress, Sedated, Lethargic HEENT: Reports: Pupils Equal, Pupils Reactive, EOMI Neck: Reports: Supple, Trachea Midline Lungs: Reports: Clear to Auscultation, Normal Respiratory Effort Cardiovascular: Reports: Regular Rate, Regular Rhythm GI/Abdominal Exam: Normal Bowel Sounds, Soft, No Organomegaly, No Distention, No Abnormal Bruit, No Mass, Other (Lower abdomen and right lower quadrant tenderness with deep palpation) (Female) Exam: Deferred Rectal (Female) Exam: Deferred Back Exam: Reports: Normal Inspection, Full Range of Motion. Denies: CVA Tenderness (L), CVA Tenderness (R) Extremities: Non-Tender, No Pedal Edema, Normal Capillary Refill Neurological: Reports: Other (She has dysphonia and left sided weakness) Psy/Mental Status: Reports: Alert, Normal Affect, Normal Mood. Denies: Depressed, Agitated, Suicidal Ideation, Homicidal Ideation, Hallucinations, Withdrawal Symptoms
[2017-05-27] MEDS: cefTRIAXone 2 GM Vial IVPUSH SCH (14:29)
== END 2017-05-27 11:50 | DRG 871 ==
LOC: DL.MS 05-12 11:04 → UNDOADMIN 05-12 11:04 → DL.MS 05-12 12:15
PROVIDERS: ADMIT Internal Medicine; ATTEND Internal Medicine
DX: A41.51 Sepsis due to Escherichia coli [E. coli] (principal); I63.8 Other cerebral infarction; G81.94 Hemiplegia, unspecified affecting left nondominant side; E87.0 Hyperosmolality and hypernatremia; E78.5 Hyperlipidemia, unspecified; I10 Essential (primary) hypertension; E03.9 Hypothyroidism, unspecified; M60.9 Myositis, unspecified; R29.810 Facial weakness; R10.9 Unspecified abdominal pain; R14.3 Flatulence; K52.9 Noninfective gastroenteritis and colitis, unspecified; R33.9 Retention of urine, unspecified; E87.6 Hypokalemia; R47.9 Unspecified speech disturbances; I65.23 Occlusion and stenosis of bilateral carotid arteries
CPT/HCPCS: 36415; 74018; 74176; 74177; 80048; 80053; 81001; 82550; 82565; 83605; 83690; 83735; 84100; 84460; 85025; 85651; 86140; 87045; 87046; 87086; 87328; 87329; 87493; 87899; 92526-GN; 92610-GN; 97110-GO; 97140-GP; 97162-GP; 97166-GO; 97530-GO; 97530-GP; A9270-GY; J0696; J0744; J1650; J2270; J3480; J7030; J7042; J7050; J7500; Q9967

== ENCOUNTER 2019-02-15 07:31 | Day surgery (SDC) | payer MEDICARE, BC ==
[~2019-02-15 07:31] MED LIST: Dextrose 5%-0.45% NaCl 1,000 ML IV SCH; Midazolam 1 MG/ML 2 ML SDV ONE; Sodium Chloride 0.9% 10 ML Syringe FLUSH PRN; fentaNYL 100 MCG/2 ML SDV ONE
[2019-02-15] MEDS ORDERED: fentaNYL 100 MCG/2 ML SDV IV ONE ×2 (07:32→08:33)
[2019-02-15] MEDS ORDERED: Midazolam 1 MG/ML 2 ML SDV IV ONE ×2 (07:32→08:34)
[2019-02-15] MEDS ORDERED: Sodium Chloride 0.9% 1,000 ML IV ONE (08:36)
--- NOTE | 2019-02-15 12:19 | OR ---
DATE: 02/15/2019 PROCEDURE: Esophagogastroduodenoscopy and multiple pinch biopsies. INSTRUMENT USED: [id number] Olympus video panendoscope. PREMEDICATIONS: No oral or topical anesthesia used. Fentanyl 50 mcg intravenous, Versed 1 mg intravenous. Nasal O2 cannula. The procedure was done under pulse oximetry, BP recording, and quality assurance monitor chassis. INDICATION: The patient with persistent upper abdominal pain, unexplained and not responsive to medical measures, on PPI. Esophagogastroduodenoscopy is performed for detection of any active erosive lesions, malignancy also under consideration, H. pylori status to be determined, endoscopic hemostasis therapy if needed. DESCRIPTION OF PROCEDURE: The scope was passed with ease. Adequate visualization of the esophagus was made from proximal to distal areas. No upper esophageal lesions identified. No distal esophageal stricture. No uphill or downhill esophageal varices. No Maggie-Agrawal tear. No evidence of erosive esophagitis by [place] criteria. No esophageal polyp or tumor mass identified. Sliding hiatal hernia was noted. No proximal gastric varices noted. Gastric fundus examination by retroflexion showed no polypoid lesions. No gastric ulcer, malignant mass, or vascular ectasia identified. Duodenal bulb showed no ulcer. Visualized second part of the duodenum was unremarkable. Multiple pinch biopsies were obtained from the gastric antrum and proximal body and sent for PyloriTek test for H. pylori, and if negative in an hour, the tissue is to be sent for histopathology. No bleeding was noted from any of the visualized areas at the completion of examination. Photographs were taken of the duodenal bulb, gastric antrum, fundus, and distal esophagus. IMPRESSION: Sliding hiatal hernia. The patient tolerated the procedure well. [facility] /[id number]
== END 2019-02-15 11:20 | disposition home or self-care (01) ==
LOC: DL.ENDO 07:31
PROVIDERS: ATTEND Internal Medicine Gastroenterology
DX: K44.9 Diaphragmatic hernia without obstruction or gangrene (principal)
CPT/HCPCS: 43239; 87077; J2250; J3010; J7030; J7042

== ENCOUNTER 2020-03-30 10:30 | Day surgery (SDC) | payer MEDICARE, BC ==
[~2020-03-30 10:30] MED LIST changes: -Dextrose 5%-0.45% NaCl 1,000 ML IV SCH; +Lactated Ringers 1,000 ML IV SCH; -Midazolam 1 MG/ML 2 ML SDV ONE; -Sodium Chloride 0.9% 10 ML Syringe FLUSH PRN; -fentaNYL 100 MCG/2 ML SDV ONE
[2020-03-30] MEDS ORDERED: Lidocaine 1% with EPINEPHrine 1:100,000 20 ML MDV INJECT ONE (10:31)
[2020-03-30] MEDS ORDERED: Lidocaine 1% with EPINEPHrine 1:100,000 20 ML MDV ONE (11:15)
[2020-03-30] MEDS ORDERED: Lidocaine 1% with EPINEPHrine 1:100,000 30 ML MDV INJECT ONE ×2 (11:29→11:32)
--- NOTE | 2020-03-31 02:20 | OR ---
DATE: 03/30/2020 INTRODUCTION: This 84-year-old female was seen by me a few days ago in the clinic for a painful lesion in the lower back just at the junction of the upper sacrum and the lower mid back. This is painful for the patient to lay on. It measures by external palpation about 1 cm x 1 cm, and is freely movable. 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 This is painful for her, and she is requesting excision. PROCEDURE IN DETAIL: In the General Surgery Clinic, 1% xylocaine with epinephrine was used to infiltrate an area around this lesion. A linear incision was made over this and taken down to the calcified mass. This was then sharply excised along the margins of the mass down to its deep margin, and the mass was taken out in total. It did measure about 1 cm x 1 cm. There are no other margins available since this was not a malignant excision, and the excision dimensions are the margin dimensions. The wound was closed using 2-0 Vicryl for deep layer to close the subcutaneous space and a 3-0 Monocryl with Steri-Strips for the skin. [facility] /[id number]
== END 2020-03-30 12:05 | disposition home or self-care (01) ==
LOC: DL.SDS 10:30
PROVIDERS: ATTEND Surgery
DX: D16.6 Benign neoplasm of vertebral column (principal); K64.4 Residual hemorrhoidal skin tags
CPT/HCPCS: 12031; 88305; 88311

== ENCOUNTER 2020-10-02 04:13 | Emergency (ER) | payer MEDICARE, BC ==
[2020-10-02] MEDS ORDERED: Sodium Chloride 0.9% 1,000 ML IV ONE ×2 (04:28→06:47)
[2020-10-02] MEDS ORDERED: Ondansetron 4 MG/2 ML SDV IVPUSH ONE (04:28)
--- NOTE | 2020-10-02 04:45 | EDM.PDOC ---
ED HPI GENERAL MEDICAL PROBLEM - General Chief Complaint: Gastrointestinal Problem Stated Complaint: AMBULANCE Time Seen by Provider: 10/02/20 04:25 Source of Information: Reports: Patient, EMS, Provider, RN History Limitations: Reports: No Limitations - History of Present Illness INITIAL COMMENTS - FREE TEXT/NARRATIVE: ED via [facility] with report of nausea and vomiting past 24 hours . Report emesis x 3. C/o nausea on presentation with epigastric pain, Reports BM yesterday. Low grade temp. No cough, No SOB , Urinary hesitancy but no burning. Refused meds at [facility] Thursday. Hx chronic low BP on Mid so none on Thursday. DNR DNI per [facility] orders - Related Data Allergies Allergy/AdvReac Type Severity Reaction Status Date / Time No Known Allergies Allergy Verified 03/27/20 10:38 Home Meds: Home Meds Calcium Carbonate/Vitamin D3 [Caltrate 600+D 1500 MG-400 Units] 600 mg PO DAILY 04/18/17 [History] Levothyroxine 75 mcg PO ACBREAKFAST 04/18/17 [History] azaTHIOprine [Azathioprine] 50 mg PO BIDMEALS 04/18/17 [History] Clopidogrel [Plavix] 75 mg PO DAILY #30 tablet 04/19/17 [Rx] Aspirin [Halfprin] 81 mg PO DAILY 05/12/17 [History] atorvaSTATin [Lipitor] 80 mg PO BEDTIME 05/12/17 [History] Acetaminophen 500 mg PO QID 02/14/19 [History] Bethanechol Chloride [Urecholine] 5 mg PO DAILY 02/14/19 [History] Carboxymethylcellulose Sodium [Thera Tears] 1 drop EYEBOTH QID 02/14/19 [History] FLUoxetine [PROzac] 10 mg PO DAILY 02/14/19 [History] Fruit Bomb 1 tbsp PO ASDIRECTED PRN 02/14/19 [History] Loperamide [Imodium AD] 2 mg PO Q8H PRN 02/14/19 [History] Med Pass 2.0 4 oz PO BID 02/14/19 [History] Mirtazapine [Remeron] 15 mg PO DAILY 02/14/19 [History] Oxybutynin 5 mg PO DAILY 02/14/19 [History] Pantoprazole Sodium [Protonix] 40 mg PO DAILY 02/14/19 [History] Sodium Phosphate,[place]-Dibasic [Fleet Enema] 1 dose RECTAL ASDIRECTED PRN 02/14/19 [History] bisacodyL [Dulcolax] 10 mg PO ASDIRECTED PRN 02/14/19 [History] Baclofen 10 mg PO BID PRN 03/30/20 [History] Bismuth Subsalicylate [Pepto Bismol] 524 mg PO BID PRN 03/30/20 [History] Magnesium Hydroxide [Milk of Magnesia] 30 ml PO DAILY PRN 03/30/20 [History] Midodrine 5 mg PO TID 03/30/20 [History] Multivit-Min/FA/Lycopen/Lutein [Centrum Silver Tablet] 1 tab PO DAILY 03/30/20 [History] Simethicone 80 mg PO QID PRN 03/30/20 [History] Past Medical History HEENT History: Reports: Impaired Vision, Macular Degeneration Cardiovascular History: Reports: Hypertension Respiratory History: Reports: Pulmonary Fibrosis Gastrointestinal History: Reports: None Other Gastrointestinal History: DYSPHAGIA Genitourinary History: Reports: Urinary Incontinence, Other (See Below) Other Genitourinary History: 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 PSEUDOBULBAR AFFECT. OCCLUSION AND STENOSIS OF RIGHT CAROTID ARTERY Psychiatric History: Reports: Anxiety, Depression Endocrine/Metabolic History: Reports: Hypothyroidism Hematologic History: Reports: Blood Transfusion(s) Immunologic History: Reports: None Oncologic (Cancer) History: Reports: None Dermatologic History: Reports: Other (See Below) Other Dermatologic History: had finger abcess/infection - Infectious Disease History Infectious Disease History: Reports: C-Difficile - Past Surgical History Head Surgeries/Procedures: Reports: None HEENT Surgical History: Reports: Cataract Surgery Cardiovascular Surgical History: Reports: None Respiratory Surgical History: Reports: None GI Surgical History: Reports: Appendectomy, Cholecystectomy, Colonoscopy Female Surgical History: Reports: None Endocrine Surgical History: Reports: None Neurological Surgical History: Reports: None Musculoskeletal Surgical History: Reports: ORIF, Other (See Below) Other Musculoskeletal Surgeries/Procedures:: patellar surgery. HIP ORIF Oncologic Surgical History: Reports: None Dermatological Surgical History: Reports: None Social & Family History - Family History Family Medical History: No Pertinent Family History Neurological: Reports: Other (See Below) - Caffeine Use Caffeine Use: Reports: None ED ROS GENERAL - Review of Systems Review Of Systems: Comprehensive ROS is negative, except as noted in HPI. Constitutional: Reports: Fever, Weakness, Decreased Appetite HEENT: Reports: No Symptoms Respiratory: Reports: No Symptoms Cardiovascular: Reports: Blood Pressure Problem (chronic). Denies: Edema GI/Abdominal: Reports: Abdominal Pain (epigastric), Decreased Appetite, Nausea, Vomiting ( x3 thursday night) : Reports: No Symptoms Neurological: Reports: Weakness, Other (prior CVA's Left sided deficit. wheel chair bound, ) Hematologic/Lymphatic: Denies: Anemia ED EXAM, GI/ABD - Physical Exam Exam: See Below Exam Limited By: No Limitations General Appearance: Alert, Mild Distress Ears: Normal External Exam, Hearing Loss Nose: Normal Inspection Throat/Mouth: Normal Voice. No: Normal Oropharynx (membranes tacky) Head: Atraumatic, Normocephalic Neck: Normal Inspection Respiratory/Chest: No Respiratory Distress, Lungs Clear, Normal Breath Sounds, Other (O2/NC 4L Saturation room air 79%) Cardiovascular: Regular Rate, Rhythm, No Edema, No JVD GI/Abdominal Exam: Normal Bowel Sounds, Tender (epigastric). No: Distended, Guarding, Rebound, Hepatomegaly, Splenomegaly Neurological: Alert, Other (generalized weakness greater left upper and lower ) Psychiatric: Flat Affect Skin Exam: Warm, Dry, No Rash, Pallor. No: Jaundice, Mottled, Wound/Incision Course - Vital Signs Last Recorded V/S: Last Vital Signs Temp 99.9 F 10/02/20 04:25 Pulse 87 10/02/20 04:25 Resp 24 H 10/02/20 04:25 BP 103/70 10/02/20 04:25 Pulse Ox 94 L 10/02/20 04:25 - Orders/Labs/Meds Orders: Active Orders 24 hr Category Date Time Status Nasogastric Orogastric Tube Insertion [OM.PC] Routine Oth 10/02/20 07:30 Ordered Labs: Laboratory Tests 10/02/20 10/02/20 10/02/20 Range/Units 04:20 04:33 04:33 WBC 8.6 (5.0-10.0) 10^3/uL RBC 4.25 (4.2-5.4) 10^6/uL Hgb 13.6 D (12.0-16.0) g/dL Hct 42.1 (37.0-47.0) % MCV 99.1 D (80-100) fL MCH 32.0 (27.0-34.0) pg MCHC 32.3 L (33.0-35.0) g/dL Plt Count 248 (150-450) 10^3/uL Neut % (Auto) 85.5 H (42.2-75.2) % Lymph % (Auto) 7.1 L (20.5-50.1) % Pickett % (Auto) 7.2 (2-8) % Eos % (Auto) 0.0 L (1.0-3.0) % Baso % (Auto) 0.2 (0.0-1.0) % Sodium 144 (136-145) mmol/L Potassium 3.3 L (3.5-5.1) mmol/L Chloride 100 (98-107) mmol/L Carbon Dioxide 32 (21-32) mmol/L Anion Gap 15.3 H (7-13) mEq/L BUN 34 H (7-18) mg/dL Creatinine 1.18 H (0.55-1.02) mg/dL Est Cr Clr Drug Dosing 25.95 mL/min Estimated GFR (MDRD) 44 BUN/Creatinine Ratio 28.8 (No establ ref range) Glucose 142 H (70-99) mg/dL Lactic Acid (0.4-2.0) mmol/L Calcium 9.7 (8.5-10.1) mg/dL Magnesium 1.6 L (1.8-2.4) mg/dL Total Bilirubin 1.0 (0.2-1.0) mg/dL AST 15 (15-37) U/L ALT 23 (14-59) U/L Alkaline Phosphatase 65 (46-116) U/L Troponin I High Sens 545 H* (<=51) pg/mL Total Protein 8.0 (6.4-8.2) g/dL Albumin 3.9 (3.4-5.0) g/dL Globulin 4.1 Albumin/Globulin Ratio 1.0 Urine Color (YELLOW) Urine Appearance (CLEAR) Urine pH (5.0-9.0) Ur Specific [place] (1.005-1.030) Urine Protein (NEGATIVE) Urine Glucose (UA) (NEGATIVE) Urine Ketones (NEGATIVE) Urine Occult Blood (NEGATIVE) Urine Nitrite (NEGATIVE) Urine Bilirubin (NEGATIVE) Urine Urobilinogen (0.2-1.0) mg/dL Ur Leukocyte Esterase (NEGATIVE) U Hyaline Cast (Auto) Urine RBC (0-5) /HPF Urine WBC (0-5/HPF) /HPF Ur Epithelial Cells (NOT SEEN) /HPF Urine Mucus (NOT SEEN) /LPF Influenza Type A RNA Negative (NEGATIVE) Influenza Type B RNA Negative (NEGATIVE) SARS-CoV-2 RNA (EDDI) Negative (NEGATIVE) 10/02/20 10/02/20 Range/Units 04:33 06:11 WBC (5.0-10.0) 10^3/uL RBC (4.2-5.4) 10^6/uL Hgb (12.0-16.0) g/dL Hct (37.0-47.0) % MCV (80-100) fL MCH (27.0-34.0) pg MCHC (33.0-35.0) g/dL Plt Count (150-450) 10^3/uL Neut % (Auto) (42.2-75.2) % Lymph % (Auto) (20.5-50.1) % Pickett % (Auto) (2-8) % Eos % (Auto) (1.0-3.0) % Baso % (Auto) (0.0-1.0) % Sodium (136-145) mmol/L Potassium (3.5-5.1) mmol/L Chloride (98-107) mmol/L Carbon Dioxide (21-32) mmol/L Anion Gap (7-13) mEq/L BUN (7-18) mg/dL Creatinine (0.55-1.02) mg/dL Est Cr Clr Drug Dosing mL/min Estimated GFR (MDRD) BUN/Creatinine Ratio (No establ ref range) Glucose (70-99) mg/dL Lactic Acid 2.0 (0.4-2.0) mmol/L Calcium (8.5-10.1) mg/dL Magnesium (1.8-2.4) mg/dL Total Bilirubin (0.2-1.0) mg/dL AST (15-37) U/L ALT (14-59) U/L Alkaline Phosphatase (46-116) U/L Troponin I High Sens (<=51) pg/mL Total Protein (6.4-8.2) g/dL Albumin (3.4-5.0) g/dL Globulin Albumin/Globulin Ratio Urine Color Dark yellow (YELLOW) Urine Appearance Slightly cloudy (CLEAR) Urine pH 6.0 (5.0-9.0) Ur Specific [place] >= 1.030 (1.005-1.030) Urine Protein 100 H (NEGATIVE) Urine Glucose (UA) Negative (NEGATIVE) Urine Ketones Negative (NEGATIVE) Urine Occult Blood Moderate H (NEGATIVE) Urine Nitrite Negative (NEGATIVE) Urine Bilirubin Negative (NEGATIVE) Urine Urobilinogen 0.2 (0.2-1.0) mg/dL Ur Leukocyte Esterase Negative (NEGATIVE) U Hyaline Cast (Auto) Many Urine RBC 20-30 H (0-5) /HPF Urine WBC 0-5 (0-5/HPF) /HPF Ur Epithelial Cells Few (NOT SEEN) /HPF Urine Mucus Many H (NOT SEEN) /LPF Influenza Type A RNA (NEGATIVE) Influenza Type B RNA (NEGATIVE) SARS-CoV-2 RNA (EDDI) (NEGATIVE) Meds: Medications Discontinued Medications Generic Name Dose Route Start Last Admin Trade Name Laytno PRN Reason Stop Dose Admin Sodium Chloride 1,000 mls @ 500 mls/hr 10/02/20 04:28 10/02/20 04:34 Normal Saline IV 10/02/20 06:27 500 mls/hr .BOLUS ONE Administration Sodium Chloride 1,000 mls @ 125 mls/hr 10/02/20 06:47 10/02/20 07:56 Normal Saline IV 10/02/20 14:46 125 mls/hr .BOLUS ONE Administration Potassium Chloride 10 meq/ 100 mls @ 100 mls/hr 10/02/20 07:30 10/02/20 07:56 Premix IV 10/02/20 08:29 100 mls/hr ONETIME ONE Administration Midodrine 5 mg 10/02/20 08:05 10/02/20 08:18 Midodrine 2.5 Mg Tab PO 10/02/20 08:06 5 mg ONETIME ONE Administration Ondansetron HCl 4 mg 10/02/20 04:28 10/02/20 04:34 Ondansetron 4 Mg/2 Ml Sdv IVPUSH 10/02/20 04:29 4 mg ONETIME ONE Administration - Re-Assessments/Exams Free Text/Narrative Re-Assessment/Exam: 10/02/20 07:[address] Byron Shepherd, accepting of patient. Tx via [facility]. Family aware. Departure - Departure Time of Disposition: 07:36 Disposition: DC/Tfer to Acute Hospital 02 Condition: Fair Clinical Impression: Small bowel obstruction, Elevated troponin, History of CVA with residual deficit, Hypokalemia - Discharge Information *PRESCRIPTION DRUG MONITORING PROGRAM REVIEWED*: No *COPY OF PRESCRIPTION DRUG MONITORING REPORT IN PATIENT REAL: No Forms: ED Department Discharge - My Orders Last 24 Hours: My Active Orders 10/02/20 07:30 Nasogastric Orogastric Tube Insertion [OM.PC] Routine - Assessment/Plan Last 24 Hours: My Active Orders 10/02/20 07:30 Nasogastric Orogastric Tube Insertion [OM.PC] Routine
[2020-10-02 05:03] LABS: ANION GAP 15.3 mEq/L (7-13)
[2020-10-02 05:26] LABS: CORONAVIRUS COVID-19 NAA NEGATIVE (NEGATIVE)
--- NOTE | 2020-10-02 06:05 | CR ---
PROCEDURE INFORMATION: Exam: XR Chest Exam date and time: 10/02/2020 5:40 AM Age: 84 years old Clinical indication: Fever; Additional info: Fever nausea vomiting TECHNIQUE: Imaging protocol: XR of the chest. Views: 1 view. COMPARISON: CT Chest Abdomen Pelvis w Cont 11/24/2019 2:56 PM FINDINGS: Lungs: Interval increase in the interstitial markings in both lower lungs. Slightly increased interstitial markings also evident in the right upper lung, but interval clearance of some of the density from this area. No significantly increased interstitial markings in the left upper lung. No consolidation. Continued prominent lung volumes. Pleural spaces: No pneumothorax or apparent pleural fluid. Heart/Mediastinum: Probable interval slight increase in the heart size to the upper limits of normal. Vasculature: Aortic atherosclerosis again evident. No suggestion of an interval aortic aneurysm. Bones/joints: Old left rib fracture again evident. Continued spurring at multiple disc levels. IMPRESSION: 1. Interval increase in the interstitial markings in the lower lungs. Increased interstitial markings also evident in the right upper lung, but interval clearance of some of the density from this area. Acute interstitial pneumonia or pulmonary edema not differentiated from interval worsening of interstitial fibrosis. Continued prominent lung volumes. 2. Probable interval slight increase in the heart size to the upper limits of normal.
--- NOTE | 2020-10-02 06:10 | CR ---
PROCEDURE INFORMATION: Exam: XR Abdomen Exam date and time: 10/02/2020 5:45 AM Age: 84 years old Clinical indication: Nausea; Additional info: Fever nausea vomiting TECHNIQUE: Imaging protocol: XR of the abdomen. Views: Frontal supine view of the abdomen. 1 View. COMPARISON: CT Chest Abdomen Pelvis w Cont 11/24/2019 2:56 PM FINDINGS: Gastrointestinal tract: Interval moderate dilatation of several small bowel loops, but no dilatation of the colon. Suspicion of minimal oral contrast in the stomach. Intraperitoneal space: No visible free air. Vasculature: Atherosclerosis again evident. Bones/joints: Left hip nail still present. Continued spurring at multiple disc levels. Possible old bilateral rib fractures. Soft tissues: Very extensive calcifications in the soft tissues bilaterally in the pelvis still present. Other findings: No interval hepatosplenomegaly. IMPRESSION: Findings consistent with a high-grade small bowel obstruction. Chronic abnormalities detailed above.
[2020-10-02] MEDS ORDERED: Potassium Chloride 10 MEQ in Premix Bag 1 BAG IV ONE (07:30)
--- NOTE | 2020-10-02 08:00 | CR ---
PROCEDURE INFORMATION: Exam: XR Chest Exam date and time: 10/02/2020 7:48 AM Age: 84 years old Clinical indication: Device placement; Ng tube; Additional info: Id if the tube is coiled TECHNIQUE: Imaging protocol: XR of the chest. Views: 1 view. COMPARISON: CR Chest 1V Frontal 10/02/2020 5:40 AM FINDINGS: Tubes, catheters and devices: Nasogastric tube has been placed with its tip in the proximal stomach, side port in distal esophagus. Lungs: There is similar prominence of the interstitial markings. Cannot evaluate for pneumothorax with non inclusion of the lung apices. Pleural spaces: The costophrenic angles are sharp. Heart/Mediastinum: Unremarkable. No cardiomegaly. Bones/joints: Degenerative changes again involve the spine. IMPRESSION: Nasogastric tube with tip in proximal stomach, side port in distal esophagus.
[2020-10-02] MEDS ORDERED: Midodrine 2.5 MG Tab PO ONE (08:05)
== END 2020-10-02 08:30 ==
LOC: DL.ED 04:13
DX: K56.609 Unspecified intestinal obstruction, unspecified as to partial versus complete obstruction (principal); R79.89 Other specified abnormal findings of blood chemistry; E87.6 Hypokalemia; I10 Essential (primary) hypertension; M19.90 Unspecified osteoarthritis, unspecified site; E03.9 Hypothyroidism, unspecified; Z86.73 Personal history of transient ischemic attack (TIA), and cerebral infarction without residual deficits; Z79.82 Long term (current) use of aspirin; Z79.02 Long term (current) use of antithrombotics/antiplatelets; Z79.899 Other long term (current) drug therapy; Z20.822 Contact with and (suspected) exposure to COVID-19
CPT/HCPCS: 0240U; 36415; 43752; 71045; 74018; 80053; 81001; 83605; 83735; 84484; 85025; 87040; 93005; 96365; 96375; 99285; A9270; J2405; J3480; J7030

== ENCOUNTER 2020-10-19 11:34 | Emergency (ER) | payer MEDICARE, BC ==
--- NOTE | 2020-10-19 12:04 | EDM.PDOC ---
ED HPI GENERAL MEDICAL PROBLEM - General Chief Complaint: Lower Extremity Injury/Pain Stated Complaint: LEG PAIN SENT BY DR SANCHEZ Time Seen by Provider: 10/19/20 11:59 Source of Information: Reports: Patient History Limitations: Reports: No Limitations - History of Present Illness INITIAL COMMENTS - FREE TEXT/NARRATIVE: 84 y/o F c/o L knne pain after falling and PT. Patient was at PT for rehab from a previous CVA. The pts therapist was heling her walking while holding on rails when her R knee gave out and the pt fell to the floor with her L knee under her. After the fall pt has had diffuse tenderness to the L knee and the upper johnson region. The pain is worse with movement and sharp in nature, rated 4/10. reports pt has severe L side deficits from her CVA. She denies fever, cough, chills, dizziness, syncope, cp, db, abd pn, pelvic pn, other injury, drugs, etoh. Onset: Today, Sudden Duration: Minutes: Location: Reports: Lower Extremity, Left Quality: Reports: Sharp Severity: Mild Improves with: Reports: Rest Worsens with: Reports: Movement - Related Data Allergies Allergy/AdvReac Type Severity Reaction Status Date / Time No Known Allergies Allergy Verified 03/27/20 10:38 Home Meds: Home Meds Calcium Carbonate/Vitamin D3 [Caltrate 600+D 1500 MG-400 Units] 600 mg PO DAILY 04/18/17 [History] Levothyroxine 75 mcg PO ACBREAKFAST 04/18/17 [History] azaTHIOprine [Azathioprine] 50 mg PO BIDMEALS 04/18/17 [History] Clopidogrel [Plavix] 75 mg PO DAILY #30 tablet 04/19/17 [Rx] Aspirin [Halfprin] 81 mg PO DAILY 05/12/17 [History] atorvaSTATin [Lipitor] 80 mg PO BEDTIME 05/12/17 [History] Acetaminophen 500 mg PO QID 02/14/19 [History] Bethanechol Chloride [Urecholine] 5 mg PO DAILY 02/14/19 [History] Carboxymethylcellulose Sodium [Thera Tears] 1 drop EYEBOTH QID 02/14/19 [History] FLUoxetine [PROzac] 10 mg PO DAILY 02/14/19 [History] Fruit Bomb 1 tbsp PO ASDIRECTED PRN 02/14/19 [History] Loperamide [Imodium AD] 2 mg PO Q8H PRN 02/14/19 [History] Med Pass 2.0 4 oz PO BID 02/14/19 [History] Mirtazapine [Remeron] 15 mg PO DAILY 02/14/19 [History] Oxybutynin 5 mg PO DAILY 02/14/19 [History] Pantoprazole Sodium [Protonix] 40 mg PO DAILY 02/14/19 [History] Sodium Phosphate,[place]-Dibasic [Fleet Enema] 1 dose RECTAL ASDIRECTED PRN 02/14/19 [History] bisacodyL [Dulcolax] 10 mg PO ASDIRECTED PRN 02/14/19 [History] Baclofen 10 mg PO BID PRN 03/30/20 [History] Bismuth Subsalicylate [Pepto Bismol] 524 mg PO BID PRN 03/30/20 [History] Magnesium Hydroxide [Milk of Magnesia] 30 ml PO DAILY PRN 03/30/20 [History] Midodrine 5 mg PO TID 03/30/20 [History] Multivit-Min/FA/Lycopen/Lutein [Centrum Silver Tablet] 1 tab PO DAILY 03/30/20 [History] Simethicone 80 mg PO QID PRN 03/30/20 [History] Past Medical History HEENT History: Reports: Impaired Vision, Macular Degeneration Cardiovascular History: Reports: Hypertension Respiratory History: Reports: Pulmonary Fibrosis Gastrointestinal History: Reports: None Other Gastrointestinal History: DYSPHAGIA Genitourinary History: Reports: Urinary Incontinence, Other (See Below) Other Genitourinary History: 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 PSEUDOBULBAR AFFECT. OCCLUSION AND STENOSIS OF RIGHT CAROTID ARTERY Psychiatric History: Reports: Anxiety, Depression Endocrine/Metabolic History: Reports: Hypothyroidism Hematologic History: Reports: Blood Transfusion(s) Immunologic History: Reports: None Oncologic (Cancer) History: Reports: None Dermatologic History: Reports: Other (See Below) Other Dermatologic History: had finger abcess/infection - Infectious Disease History Infectious Disease History: Reports: C-Difficile - Past Surgical History Head Surgeries/Procedures: Reports: None HEENT Surgical History: Reports: Cataract Surgery Cardiovascular Surgical History: Reports: None Respiratory Surgical History: Reports: None GI Surgical History: Reports: Appendectomy, Cholecystectomy, Colonoscopy Female Surgical History: Reports: None Endocrine Surgical History: Reports: None Neurological Surgical History: Reports: None Musculoskeletal Surgical History: Reports: ORIF, Other (See Below) Other Musculoskeletal Surgeries/Procedures:: patellar surgery. HIP ORIF Oncologic Surgical History: Reports: None Dermatological Surgical History: Reports: None Social & Family History - Family History Family Medical History: No Pertinent Family History Neurological: Reports: Other (See Below) - Caffeine Use Caffeine Use: Reports: None Review of Systems - Review of Systems Review Of Systems: Comprehensive ROS is negative, except as noted in HPI. ED EXAM, GENERAL - Physical Exam Exam: See Below Exam Limited By: No Limitations General Appearance: Alert Eye Exam: Bilateral Eye: PERRL Respiratory/Chest: No Respiratory Distress, Lungs Clear, Normal Breath Sounds Cardiovascular: Normal Peripheral Pulses Peripheral Pulses: 2+: Posterior Tibial (L), Posterior Tibial (R), Dorsalis Pedis (L), Dorsalis Pedis (R) GI/Abdominal: Soft, Non-Tender (Female) Exam: Deferred Rectal (Female) Exam: Deferred Back Exam: Normal Inspection, Full Range of Motion Extremities: Other (R knee tedner to palpation with no obvious deformity. Motor funciton cannot be assessed due to pts previous cva. ) Course - Vital Signs Last Recorded V/S: Last Vital Signs Temp 97.1 F 10/19/20 11:48 Pulse 95 10/19/20 11:48 Resp 16 10/19/20 11:48 BP 114/71 10/19/20 11:48 Pulse Ox 99 10/19/20 11:48 - Orders/Labs/Meds Orders: Active Orders 24 hr Category Date Time Status Tibia Fibula Lt [CR] Stat Exams 10/19/20 11:51 Taken - Re-Assessments/Exams Free Text/Narrative Re-Assessment/Exam: 10/19/20 12:35 Discussed exam and xray with pt. Informed her there is no visible acute fracture and to use tylenol or motrin for pain as needed. Instructed her to follow up with her PCP in 7-10 days if symptoms do not improve to rule out occult fracture, ligamentous injury, cartilage injury Departure - Departure Time of Disposition: 12:31 Disposition: Home, Self-Care 01 Condition: Good Clinical Impression: Knee sprain Qualifiers: Encounter type: initial encounter Involved ligament of knee: unspecified ligament Laterality: left Qualified Code(s): S83.92XA - Sprain of unspecified site of left knee, initial encounter - Discharge Information *PRESCRIPTION DRUG MONITORING PROGRAM REVIEWED*: Not Applicable *COPY OF PRESCRIPTION DRUG MONITORING REPORT IN PATIENT REAL: Not Applicable Instructions: Knee Sprain, Adult Referrals: Yari Sanchez MD [Primary Care Provider] - Forms: ED Department Discharge Additional Instructions: Use tylenol or motrin for pain. If your symptoms do not improve in 7-10 days follow up with your primary care facility to rule out ligamentous or cartilage injury. Sepsis Event Note (ED) - Focused Exam Vital Signs: Vital Signs Temp Pulse Resp BP Pulse Ox 10/19/20 11:48 97.1 F 95 16 114/71 99
[2020-10-19] MEDS ORDERED: Diazepam 5 MG Tab PO ONE (12:41)
--- NOTE | 2020-10-19 13:01 | CR ---
EXAMINATION: Tibia Fibula Lt SEX: Female AGE: 84 years CLINICAL HISTORY: 84-year-old female injured in fall. (Left lower lower leg injury) INTERPRETATION: 1. Artifacts associated with external air splint. 2. Generalized osteoporosis. Bone spur at the insertion of quadriceps tendon dorsal aspect of the patella. 3. Fragmentation anterior tibial apophysis; and, *suspicious oblique lucency (fracture line?) proximal diaphysis left tibia. 4. No other fracture of the left tibia or fibular long bones. 5. No left knee or ankle joint dislocation. CONCLUSION: Osteoporosis. Suspicion occult, nondisplaced (hairline) proximal tibial fracture (see above).
== END 2020-10-19 13:20 | disposition home or self-care (01) ==
LOC: DL.ED 11:34
DX: S83.92XA Sprain of unspecified site of left knee, initial encounter (principal); I10 Essential (primary) hypertension; M19.90 Unspecified osteoarthritis, unspecified site; E03.9 Hypothyroidism, unspecified; Z86.73 Personal history of transient ischemic attack (TIA), and cerebral infarction without residual deficits; Z79.82 Long term (current) use of aspirin; Z79.02 Long term (current) use of antithrombotics/antiplatelets; Z79.899 Other long term (current) drug therapy; W18.30XA Fall on same level, unspecified, initial encounter; Y93.01 Activity, walking, marching and hiking
CPT/HCPCS: 73590; 99284; A9270

== ENCOUNTER 2021-09-12 14:19 | Inpatient (IN) | payer MEDICARE, BC ==
[2021-09-12] MEDS ORDERED: Sodium Chloride 0.9% 10 ML Syringe FLUSH PRN (14:46)
[2021-09-12 15:38] LABS: ANION GAP 13.6 mEq/L (7-13); CHLORIDE,CL 105 mmol/L (98-107); SODIUM,NA 143 mmol/L (136-145)
[2021-09-12 15:46] LABS: ESTIMATED GFR 84 mL/min (>=60)
[2021-09-12] MEDS ORDERED: Iopamidol 612 MG/ML 100 ML Bottle IVPUSH ONE (15:47)
[2021-09-12 15:58] LABS: CORONAVIRUS COVID-19 NAA NEGATIVE (NEGATIVE)
[2021-09-12] MEDS ORDERED: Sodium Chloride 0.9% 1,000 ML IV ONE (16:56)
[2021-09-12] MEDS ORDERED: Ondansetron 4 MG/2 ML SDV IVPUSH PRN (17:52)
[2021-09-12] MEDS ORDERED: Benzocaine/Docusate Sodium 20-283 MG/5 ML Enema RECTAL ONE (17:59)
[2021-09-12] MEDS ORDERED: cefTRIAXone 1 GM Vial IV SCH (19:00)
[2021-09-12] MEDS ORDERED: cefTRIAXone 1 GM Vial IM SCH (19:00)
[2021-09-12] MEDS: metroNIDAZOLE/Normal Saline 500 MG in Premix Bag 100 BAG IV SCH (19:32)
[2021-09-12] MEDS ORDERED: HYDROCORTISONE ACETATE 25 MG RC SCH (21:00)
[2021-09-12] MEDS: Midodrine 2.5 MG Tab PO SCH (21:33)
[2021-09-12] MEDS: Baclofen 10 MG Tab PO SCH (21:34)
[2021-09-12] MEDS: Polyvinyl Alcohol 1.4% Ophth Soln 15 ML Bottle EYEBOTH SCH (21:34)
[2021-09-13] MEDS: Dextrose 5%-0.45% NaCl 1,000 ML IV SCH ×2 (03:10→21:36)
[2021-09-13] MEDS: metroNIDAZOLE/Normal Saline 500 MG in Premix Bag 100 BAG IV SCH ×3 (03:13→18:12)
[2021-09-13 07:08] LABS: ANION GAP 16.8 mEq/L (7-13)
[2021-09-13] MEDS: Levothyroxine 75 MCG Tab PO SCH (07:27)
[2021-09-13] MEDS: Acetaminophen 325 MG Tab PO PRN ×2 (09:08→14:46)
[2021-09-13] MEDS: Midodrine 2.5 MG Tab PO SCH ×3 (09:14→17:38)
[2021-09-13] MEDS: Mirtazapine 15 MG Tab PO SCH (09:15)
[2021-09-13] MEDS: Aspirin 81 MG Tab.EC PO SCH (09:15)
[2021-09-13] MEDS: Enoxaparin 30 MG/0.3 ML Syringe SUBCUT SCH (09:15)
[2021-09-13] MEDS: FLUoxetine 10 MG Cap PO SCH (09:15)
[2021-09-13] MEDS: Fludrocortisone 0.1 MG Tab PO SCH (09:15)
[2021-09-13] MEDS: rOPINIRole 2 MG Tab PO SCH (09:15)
[2021-09-13] MEDS: Polyvinyl Alcohol 1.4% Ophth Soln 15 ML Bottle EYEBOTH SCH ×4 (09:15→21:41)
[2021-09-13] MEDS: Baclofen 10 MG Tab PO SCH ×2 (09:15→21:39)
[2021-09-13] MEDS: Clopidogrel 75 MG Tab PO SCH (09:15)
[2021-09-13] MEDS: Mineral Oil/Petrolatum/Phenylephrine/Shark Liver Oil Oint 57 GM Tube RECTAL PRN ×2 (12:35→13:23)
[2021-09-13] MEDS: DICLOFENAC TOP SCH ×3 (12:36→21:41)
[2021-09-13] MEDS: [UNRECOGNIZED DRUG - OTHER] TOP SCH ×3 (12:36→21:41)
[2021-09-13] MEDS: cefTRIAXone 1 GM in Sodium Chloride 0.9% 50 ML IV SCH (17:40)
[2021-09-14] MEDS: metroNIDAZOLE/Normal Saline 500 MG in Premix Bag 100 BAG IV SCH ×3 (02:38→19:54)
[2021-09-14] MEDS: Mineral Oil/Petrolatum/Phenylephrine/Shark Liver Oil Oint 57 GM Tube RECTAL PRN ×2 (02:39→15:51)
[2021-09-14] MEDS: Levothyroxine 75 MCG Tab PO SCH (05:09)
[2021-09-14 09:06] LABS: ANION GAP 14.2 mEq/L (7-13)
[2021-09-14] MEDS ORDERED: Potassium Chloride 20 MEQ in Premix Bag 1 BAG IV ONE (09:17)
[2021-09-14] MEDS: Midodrine 2.5 MG Tab PO SCH ×3 (10:00→17:35)
[2021-09-14] MEDS: Clopidogrel 75 MG Tab PO SCH (10:00)
[2021-09-14] MEDS: Mirtazapine 15 MG Tab PO SCH (10:00)
[2021-09-14] MEDS: Aspirin 81 MG Tab.EC PO SCH (10:00)
[2021-09-14] MEDS: Polyvinyl Alcohol 1.4% Ophth Soln 15 ML Bottle EYEBOTH SCH ×4 (10:00→20:41)
[2021-09-14] MEDS: rOPINIRole 2 MG Tab PO SCH (10:00)
[2021-09-14] MEDS: [UNRECOGNIZED DRUG - OTHER] TOP SCH ×4 (10:00→20:41)
[2021-09-14] MEDS: DICLOFENAC TOP SCH ×4 (10:00→20:41)
[2021-09-14] MEDS: Enoxaparin 30 MG/0.3 ML Syringe SUBCUT SCH (10:00)
[2021-09-14] MEDS: Fludrocortisone 0.1 MG Tab PO SCH (10:00)
[2021-09-14] MEDS: Baclofen 10 MG Tab PO SCH ×2 (10:00→20:01)
[2021-09-14] MEDS: FLUoxetine 10 MG Cap PO SCH (14:14)
[2021-09-14] MEDS: Potassium Chloride 10% 20 MEQ/15 ML Soln 15 ML UD Cup PO SCH ×2 (14:40→18:16)
[2021-09-14] MEDS: cefTRIAXone 1 GM in Sodium Chloride 0.9% 50 ML IV SCH (18:09)
[2021-09-14] MEDS ORDERED: Melatonin 3 MG Tab PO PRN (19:47)
[2021-09-15] MEDS: metroNIDAZOLE/Normal Saline 500 MG in Premix Bag 100 BAG IV SCH ×3 (03:10→20:30)
[2021-09-15] MEDS: Levothyroxine 75 MCG Tab PO SCH (05:09)
[2021-09-15 06:54] LABS: ANION GAP 9.1 mEq/L (7-13)
[2021-09-15] MEDS ORDERED: Melatonin 3 MG Tab PO PRN (09:13)
[2021-09-15] MEDS ORDERED: D5 1/2 NS w/ 20 mEq/L KCl 1,000 ML IV SCH ×3 (09:15→15:45)
[2021-09-15] MEDS: Fludrocortisone 0.1 MG Tab PO SCH (09:44)
[2021-09-15] MEDS: Midodrine 2.5 MG Tab PO SCH ×3 (09:44→17:30)
[2021-09-15] MEDS: rOPINIRole 2 MG Tab PO SCH (09:46)
[2021-09-15] MEDS: Mirtazapine 15 MG Tab PO SCH (09:47)
[2021-09-15] MEDS: Clopidogrel 75 MG Tab PO SCH (09:48)
[2021-09-15] MEDS: Aspirin 81 MG Tab.EC PO SCH (09:48)
[2021-09-15] MEDS: Baclofen 10 MG Tab PO SCH ×2 (09:49→20:34)
[2021-09-15] MEDS: FLUoxetine 10 MG Cap PO SCH (09:49)
[2021-09-15] MEDS: Potassium Chloride 10% 20 MEQ/15 ML Soln 15 ML UD Cup PO SCH ×2 (09:50→18:00)
[2021-09-15] MEDS: Enoxaparin 30 MG/0.3 ML Syringe SUBCUT SCH (09:50)
[2021-09-15] MEDS: Polyvinyl Alcohol 1.4% Ophth Soln 15 ML Bottle EYEBOTH SCH ×4 (10:02→20:37)
[2021-09-15] MEDS: DICLOFENAC TOP SCH ×4 (10:09→20:38)
[2021-09-15] MEDS: [UNRECOGNIZED DRUG - OTHER] TOP SCH ×4 (10:09→20:38)
[2021-09-15] MEDS: Mineral Oil/Petrolatum/Phenylephrine/Shark Liver Oil Oint 57 GM Tube RECTAL PRN ×2 (13:24→20:37)
[2021-09-15] MEDS: cefTRIAXone 1 GM in Sodium Chloride 0.9% 50 ML IV SCH (17:25)
[2021-09-15] MEDS: Acetaminophen 325 MG Tab PO PRN (20:34)
[2021-09-15] MEDS ORDERED: Zolpidem 5 MG Tab PO PRN (22:30)
[2021-09-16] MEDS: metroNIDAZOLE/Normal Saline 500 MG in Premix Bag 100 BAG IV SCH ×3 (03:25→12:33)
[2021-09-16] MEDS: Levothyroxine 75 MCG Tab PO SCH (07:37)
[2021-09-16] MEDS: Midodrine 2.5 MG Tab PO SCH ×2 (09:17→12:23)
[2021-09-16] MEDS: Potassium Chloride 10% 20 MEQ/15 ML Soln 15 ML UD Cup PO SCH (09:18)
[2021-09-16] MEDS: Fludrocortisone 0.1 MG Tab PO SCH (09:19)
[2021-09-16] MEDS: Aspirin 81 MG Tab.EC PO SCH (09:19)
[2021-09-16] MEDS: Baclofen 10 MG Tab PO SCH (09:19)
[2021-09-16] MEDS: Polyvinyl Alcohol 1.4% Ophth Soln 15 ML Bottle EYEBOTH SCH (09:20)
[2021-09-16] MEDS: Enoxaparin 30 MG/0.3 ML Syringe SUBCUT SCH (09:20)
[2021-09-16] MEDS: Clopidogrel 75 MG Tab PO SCH (09:21)
[2021-09-16] MEDS: FLUoxetine 10 MG Cap PO SCH (09:21)
[2021-09-16] MEDS: [UNRECOGNIZED DRUG - OTHER] TOP SCH (09:22)
[2021-09-16] MEDS: DICLOFENAC TOP SCH (09:22)
[2021-09-16] MEDS: Mirtazapine 15 MG Tab PO SCH (09:23)
[2021-09-16] MEDS: rOPINIRole 2 MG Tab PO SCH (09:24)
[2021-09-16 11:56] LABS: ANION GAP 4.9 mEq/L (7-13)
[2021-09-16] MEDS ORDERED: Potassium Chloride 10 MEQ Tab.ER PO ONE (12:40)
== END 2021-09-16 13:15 | disposition home or self-care (01) | DRG 389 ==
LOC: DL.ED 14:19 → DL.MS 17:02
PROVIDERS: ADMIT Internal Medicine; ATTEND Internal Medicine
PROC: 0D9670Z Drainage of Stomach with Drainage Device, Via Natural or Artificial Opening (ICD-10-PCS; principal; 2021-09-12)
DX: K56.600 Partial intestinal obstruction, unspecified as to cause (principal); N39.0 Urinary tract infection, site not specified; E87.6 Hypokalemia; R33.9 Retention of urine, unspecified; H54.7 Unspecified visual loss; Z66 Do not resuscitate; Z20.822 Contact with and (suspected) exposure to COVID-19; I10 Essential (primary) hypertension; F41.9 Anxiety disorder, unspecified; F32.A Depression, unspecified; J84.10 Pulmonary fibrosis, unspecified; R13.10 Dysphagia, unspecified; R32 Unspecified urinary incontinence; Z79.82 Long term (current) use of aspirin; N32.81 Overactive bladder; M19.90 Unspecified osteoarthritis, unspecified site; E03.9 Hypothyroidism, unspecified; M60.9 Myositis, unspecified; Z86.73 Personal history of transient ischemic attack (TIA), and cerebral infarction without residual deficits; Z79.890 Hormone replacement therapy; Z79.899 Other long term (current) drug therapy; Z98.49 Cataract extraction status, unspecified eye; Z28.82 Immunization not carried out because of caregiver refusal; Z79.02 Long term (current) use of antithrombotics/antiplatelets
CPT/HCPCS: 0240U; 36415; 43752; 71045; 74018; 74176; 80048; 80053; 81001; 83605; 83880; 84145; 85025; 86140; 87040; 87086; 99285; 99222; 99232; 99239; 99284; A9270-GY; J0696; J1650; J3480; J3490; J7030; J7042; J7500; U0002